=== PATIENT | male | born 1960 | race Caucasian/White ===

== ENCOUNTER 2017-02-22 04:25 | Emergency (ER) | payer SELFPAY ==
[2017-02-22 04:31] VITALS: BMI 19.5
[2017-02-22 04:32] VITALS: BP 116/74; PULSE 115; RESP 28; TEMP 36.7; O2SAT 92; BMI 19.5
--- NOTE | 2017-02-22 04:33 | XR_ITS ---
XR chest 2V HISTORY: Shortness of breath ITS.REASON: c/o sob ORDERING PHYSICIAN: Miguel Nettles MD PATIENT AGE: 56 years COMPARISON: None available FINDINGS: The cardiomediastinal silhouette and pulmonary vascularity are within normal limits. Hyperinflation with attenuation of the pulmonary vessels consistent with COPD. There is prominence of the interstitium/curly B lines and may be due to interstitial pneumonitis. Acute cardiac compensation is also considered. The heart size is normal and the pulmonary vessels however are not engorged. No effusions. No acute bony anomalies. IMPRESSION: 1. COPD/emphysema. 2. Diffuse prominence of the interstitium consistent with interstitial pneumonitis either acute or chronic versus acute cardiac decompensation with interstitial edema
[2017-02-22 05:00] VITALS: PULSE 103; PULSE 105
[2017-02-22 05:05] LABS: Basophils # 0.1 K/mm3 (0-0.2); Basophils % 0.8 % (0.1-2.0); Eosinophils # 0.1 K/mm3 (0.0-0.4); Eosinophils % 1.9 % (0.1-12.0); Hematocrit 43.9 % (42.0-52.0); Lymphocytes # 0.8 K/mm3 (0.7-4.5); Lymphocytes % 13.7 K/mm3 (10-50); Mean Corpuscular HGB Conc 34.2 g/dL (31.8-35.4); Mean Corpuscular Hemoglobin 31.5 pg (27.0-31.2); Mean Corpuscular Volume 92.2 fl (80-94); Mean Platelet Volume 6.9 fl (7.4-10.4); Monocytes # 0.4 K/mm3 (0.1-1.0); Monocytes % 6.5 % (1.7-9.3); Neutrophils # 4.7 K/mm3 (1.8-7.8); Neutrophils % 77.2 % (37.0-80.0); Platelet Count 309 K/mm3 (142-424); Red Blood Count 4.76 M/mm3 (4.60-6.20); Red Cell Distribution Width 12.1 % (11.5-17.5); White Blood Count 6.1 K/mm3 (4.8-10.8)
[2017-02-22 05:12] LABS: Lactic Acid 1.1 mmol/L (0.4-2.0)
[2017-02-22 05:13] LABS: Alanine Aminotransferase 15 U/L (12-78); Albumin Level 3.8 gm/dL (3.4-5.0); Albumin/Globulin Ratio 0.9 (1.1-1.8); Alkaline Phosphatase 71 U/L (46-116); Anion Gap 12.9 mEq/L (5-15); Aspartate Amino Transferase 18 U/L (15-37); Bilirubin,Total 0.5 mg/dL (0.2-1.0); Blood Urea Nitrogen 11 mg/dL (7-18); Calcium 8.8 mg/dL (8.5-10.1); Carbon Dioxide 26 mmol/L (21.0-32.0); Chloride 101 mmol/L (98-107); Creatinine Clearance Estimated 71 mL/min (0-300); Creatinine,Serum 0.94 mg/dL (0.70-1.30); Estimated Glomerular Filt Rate 83 ml/min (>60); GFR (African American) 101 ML/MIN (>60); Globulin 4.2 gm/dl (1.3-3.2); Glucose 103 mg/dL (74-106); Potassium 3.9 mmoL/L (3.5-5.1); Sodium 136 mmol/L (136-145)
--- NOTE | 2017-02-22 05:21 | HMH.EDSOB ---
ED Disposition Clinical Impression: Acute exacerbation of chronic obstructive airways disease, Bronchitis Disposition: Home, Self-Care Condition on Discharge: Good Instructions: DI for Chronic Obstructive Pulmonary Disease Additional Instructions: use meds and see pcp for follow up Prescriptions: Azithromycin [Zithromax 250mg tab] 250 mg PO DIRECTED #6 tab Benzonatate [Tessalon Perle 100mg Cap] 100 mg PO TID #30 cap predniSONE [Prednisone 20mg Tab] 20 mg PO DAILY #10 tab - Critical Care Critical Care Time: No Attestation: On 02/22/17, the high probability of a clinically significant, sudden or life threatening deterioration of the following system(s) required my full and direct attention, intervention and personal management. The time I documented below is in addition to time spent performing reported procedures but includes the following listed in this critical care notation. Medical Decision Making - Medical Records Medical records reviewed: Yes: I reviewed the patient's medical records. Vital Signs: 02/22/17 04:32 02/22/17 05:00 02/22/17 05:33 Temperature 98.1 F 99 F Temperature Source Oral Oral Pulse Rate 105 H Pulse Rate [Right Radial] 115 H 102 H Respiratory Rate 28 H 20 Blood Pressure [Right Arm] 116/74 113/71 Blood Pressure Mean [Right Arm] 88 85 Blood Pressure Source [Right Arm] Automatic Cuff Automatic Cuff Blood Pressure Position [Right Arm] Sitting Sitting 02 Sat by Pulse Oximetry 92 L 96 Oxygen Delivery Method Room Air Nasal Cannula Oxygen Flow Rate (LPM) 2 - Lab Data Lab results reviewed: Yes: I reviewed the patient's lab results. Lab Results 02/22/17 04:40: WBC 6.1, RBC 4.76, Hgb 15.0, Hct 43.9, MCV 92.2, MCH 31.5 H, MCHC 34.2, RDW 12.1, Plt Count 309, MPV 6.9 L, Neut % (Auto) 77.2, Lymph % (Auto) 13.7, [place] % (Auto) 6.5, Eos % (Auto) 1.9, Baso % (Auto) 0.8, Neut # (Auto) 4.7, Lymph # (Auto) 0.8, [place] # (Auto) 0.4, Eos # (Auto) 0.1, Baso # (Auto) 0.1 02/22/17 04:40: Sodium 136, Potassium 3.9, Chloride 101, Carbon Dioxide 26, Anion Gap 12.9, BUN 11, Creatinine 0.94, Estimated Creat Clear 71, Estimated GFR 83, Est GFR ( Amer) 101, Glucose 103, Calcium 8.8, Total Bilirubin 0.5, AST 18, ALT 15, Alkaline Phosphatase 71, Total Protein 8.0, Albumin 3.8, Globulin 4.2 H, Albumin/Globulin Ratio 0.9 L 02/22/17 04:40: Lactic Acid 1.1 02/22/17 04:40: Total Creatine Kinase 73, CK-MB (CK-2) < 0.5, CK-MB (CK-2) Rel Index 0.7, Troponin I < 0.02 02/22/17 04:50: Influenza Type A Ag Negative, Influenza Type B Ag Negative Result diagrams: 02/22/17 04:40 02/22/17 04:40 Orders (Tests/Meds): ED MEDICATIONS Generic Name Dose Route Start Last Admin Trade Name Freq PRN Reason Stop Dose Admin Albuterol Sulfate 2 puffs 02/22/17 06:20 Proventil-Hfa 90mcg/Puff Inhaler IH 03/24/17 06:19 Q4HP PRN Shortness Of Breath Discontinued Medications Generic Name Dose Route Start Last Admin Trade Name Freq PRN Reason Stop Dose Admin Methylprednisolone Sodium Succinate 125 mg 02/22/17 05:36 02/22/17 05:41 Solu-Medrol 125mg/2ml Vial IV 02/22/17 05:37 125 mg ONCE ONE Administration Miscellaneous 1 unit 02/22/17 06:20 Aerochamber/Optihaler MC 02/22/17 06:21 ONCE ONE ORDERS Category Date Time Status Blood Culture Stat Micro 02/22/17 04:40 Received - Radiology Data #1 Image(s): Chest Image Reviewed: Yes I reviewed the patient's radiology image Preliminary Findings: Abnormal (copd) - ECG Data Tracing #1 I reviewed this ECG and interpreted as documented below: Ischemic changes: non-specific ST-T wave changes - [place] Inquiry Pt receiving controlled substance: No Resp/SOB HPI - General Chief Complaint: Shortness of Breath/Dyspnea Stated Complaint: SOA Time Seen by Provider: 02/22/17 05:21 Mode of Arrival: Ambulatory Source of Information: Patient, Spouse, Medical Record Limitations: No Limitations
--- NOTE | 2017-02-22 05:24 | ED_ITS ---
ED Disposition Clinical Impression: Acute exacerbation of chronic obstructive airways disease, Bronchitis Disposition: Home, Self-Care Condition on Discharge: Good Instructions: DI for Chronic Obstructive Pulmonary Disease Additional Instructions: use meds and see pcp for follow up Prescriptions: Azithromycin [Zithromax 250mg tab] 250 mg PO DIRECTED #6 tab Benzonatate [Tessalon Perle 100mg Cap] 100 mg PO TID #30 cap predniSONE [Prednisone 20mg Tab] 20 mg PO DAILY #10 tab - Critical Care Critical Care Time: No Attestation: On 02/22/17, the high probability of a clinically significant, sudden or life threatening deterioration of the following system(s) required my full and direct attention, intervention and personal management. The time I documented below is in addition to time spent performing reported procedures but includes the following listed in this critical care notation. Medical Decision Making - Medical Records Medical records reviewed: Yes: I reviewed the patient's medical records. Vital Signs: 02/22/17 04:32 02/22/17 05:00 02/22/17 05:33 Temperature 98.1 F 99 F Temperature Source Oral Oral Pulse Rate 105 H Pulse Rate [Right Radial] 115 H 102 H Respiratory Rate 28 H 20 Blood Pressure [Right Arm] 116/74 113/71 Blood Pressure Mean [Right Arm] 88 85 Blood Pressure Source [Right Arm] Automatic Cuff Automatic Cuff Blood Pressure Position [Right Arm] Sitting Sitting 02 Sat by Pulse Oximetry 92 L 96 Oxygen Delivery Method Room Air Nasal Cannula Oxygen Flow Rate (LPM) 2 - Lab Data Lab results reviewed: Yes: I reviewed the patient's lab results. Lab Results 02/22/17 04:40: WBC 6.1, RBC 4.76, Hgb 15.0, Hct 43.9, MCV 92.2, MCH 31.5 H, MCHC 34.2, RDW 12.1, Plt Count 309, MPV 6.9 L, Neut % (Auto) 77.2, Lymph % (Auto ) 13.7, [place] % (Auto) 6.5, Eos % (Auto) 1.9, Baso % (Auto) 0.8, Neut # (Auto) 4.7, Lymph # (Auto) 0.8, [place] # (Auto) 0.4, Eos # (Auto) 0.1, Baso # (Auto) 0.1 02/22/17 04:40: Sodium 136, Potassium 3.9, Chloride 101, Carbon Dioxide 26, Anion Gap 12.9, BUN 11, Creatinine 0.94, Estimated Creat Clear 71, Estimated GFR 83, Est GFR ( Amer) 101, Glucose 103, Calcium 8.8, Total Bilirubin 0.5, AST 18, ALT 15, Alkaline Phosphatase 71, Total Protein 8.0, Albumin 3.8, Globulin 4.2 H, Albumin/Globulin Ratio 0.9 L 02/22/17 04:40: Lactic Acid 1.1 02/22/17 04:40: Total Creatine Kinase 73, CK-MB (CK-2) < 0.5, CK-MB (CK-2) Rel Index 0.7, Troponin I < 0.02 02/22/17 04:50: Influenza Type A Ag Negative, Influenza Type B Ag Negative Result diagrams: 02/22/17 04:40 02/22/17 04:40 Orders (Tests/Meds): ED MEDICATIONS Generic Name Dose Route Start Last Admin Trade Name Freantonino PRN Reason Stop Dose Admin Albuterol Sulfate 2 puffs 02/22/17 06:20 Proventil-Hfa 90mcg/Puff Inhaler IH 03/24/17 06:19 Q4HP PRN Shortness Of Breath Discontinued Medications Generic Name Dose Route Start Last Admin Trade Name Freq PRN Reason Stop Dose Admin Methylprednisolone Sodium Succinate 125 mg 02/22/17 05:36 02/22/17 05:41 Solu-Medrol 125mg/2ml Vial IV 02/22/17 05:37 125 mg ONCE ONE Administration Miscellaneous 1 unit 02/22/17 06:20 Aerochamber/Optihaler MC 02/22/17 06:21 ONCE ONE ORDERS Category Date Time Status Blo
[2017-02-22 05:33] VITALS: BP 113/71; PULSE 102; RESP 20; TEMP 37.2; O2SAT 96
[2017-02-22 05:50] LABS: Creatine Kinase 73 U/L (39-308); Troponin I < 0.02 ng/ml (0.00-0.06)
[2017-02-22 05:51] LABS: CKMB Relative Index 0.7 U/L (0-4.0); Creatine Kinase MB < 0.5 mg/ml (0.0-3.6)
[2017-02-22 06:48] VITALS: BP 98/56; PULSE 105; RESP 24; TEMP 37.2; O2SAT 94
== END 2017-02-22 06:50 | disposition home or self-care (01) ==
PROVIDERS: Emergency Provider Emergency Medicine
DX: J44.1 Chronic obstructive pulmonary disease with (acute) exacerbation (principal); F17.210 Nicotine dependence, cigarettes, uncomplicated; F12.10 Cannabis abuse, uncomplicated; Z79.82 Long term (current) use of aspirin
CPT/HCPCS: 71046; 80053; 82550; 82553; 83605; 84484; 85025; 87040; 87275; 87276; 93005; 93041; 96374; 99285

== ENCOUNTER 2021-08-03 05:30 | Observation (INO) | payer OTHER, SELFPAY ==
[2021-08-03] VITALS (13 sets, daily range): BP systolic 121–143; BP diastolic 67–87; PULSE 84–108; RESP 15–33; TEMP 36.4–37.7; O2SAT 81–98; BMI 18.1; BMI 17.2
--- NOTE | 2021-08-03 05:45 | XR_ITS ---
PROCEDURE INFORMATION: Exam: XR Chest Exam date and time: 08/03/2021 6:04 AM Age: 61 years old Clinical indication: Shortness of breath; Additional info: SOA, room air sat 79% TECHNIQUE: Imaging protocol: Radiologic exam of the chest. Views: 1 view. COMPARISON: CR CXR2V XR chest 2V 02/22/2017 4:50 AM FINDINGS: Lungs: The lungs are hyperinflated similar to prior study likely related to COPD. Pulmonary reticular markings are similar bilaterally. Pleural spaces: Unremarkable. No pleural effusion. No pneumothorax. Heart/Mediastinum: Unremarkable. No cardiomegaly. Bones/joints: Unremarkable. IMPRESSION: Chronic changes of COPD.
--- NOTE | 2021-08-03 05:46 | ECG_ITS ---
APPROVED REPORT Exam: Resting ECG HR:107 bpm ECG Measurements Heart Rate 107 AXES NC 135 P 79 QRSd 120 QRS 89 QT 330 T 68 QTc 393 Conclusion SINUS TACHYCARDIA INDETERMINATE AXIS RIGHT BUNDLE BRANCH BLOCK [120+ ms QRS DURATION, UPRIGHT V1, 40+ ms S IN I/aVL/V4/V5/V6] ABNORMAL ECG UNCONFIRMED REPORT Electronically signed by : Zaheer Lopez MD 08/04/2021 08:26:59
--- NOTE | 2021-08-03 05:49 | PC.NURSE ---
PT SP02 81% ON ROOM AIR UPON ARRIVAL. PT PLACED ON 02 2L NC SP02 IMPROVED TO 93% WITH PURSE LIPPED BREATHING. FAMILY AT BEDSIDE.
[2021-08-03 05:53] LABS: Basophils # 0.1 K/mm3 (0-0.2); Basophils % 1.5 % (0.1-2.0); Eosinophils # 0.1 K/mm3 (0.0-0.4); Eosinophils % 1.1 % (0.1-12.0); Hematocrit 39.5 % (42.0-52.0); Hemoglobin 13.3 g/dL (14.1-18.0); Lymphocytes # 1.1 K/mm3 (0.7-4.5); Lymphocytes % 17.9 % (10-50); Mean Corpuscular HGB Conc 33.7 g/dL (31.8-35.4); Mean Corpuscular Hemoglobin 32.9 pg (27.0-31.2); Mean Corpuscular Volume 97.6 fl (80-94); Mean Platelet Volume 8.2 fl (7.4-10.4); Monocytes # 0.5 K/mm3 (0.1-1.0); Monocytes % 8.8 % (1.7-9.3); Neutrophils # 4.3 K/mm3 (1.8-7.8); Neutrophils % 70.7 % (37.0-80.0); Platelet Count 296 K/mm3 (142-424); Red Blood Count 4.05 M/mm3 (4.60-6.20); Red Cell Distribution Width 13.5 % (11.5-17.5); White Blood Count 6.1 K/mm3 (4.8-10.8)
[2021-08-03 05:56] LABS: Chloride 101 mmol/L (98-107); Potassium 3.1 mmoL/L (3.5-5.1); Sodium 137 mmol/L (136-145)
[2021-08-03 05:59] LABS: Alanine Aminotransferase 22 U/L (12-78); Albumin Level 4.1 g/dl (3.5-5.0); Albumin/Globulin Ratio 1.2 (1.1-1.8); Alkaline Phosphatase 59 U/L (38-126); Anion Gap 12.1 mEq/L (5-15); Aspartate Amino Transferase 32 U/L (17-59); Bilirubin,Total 0.7 mg/dl (0.2-1.3); Blood Urea Nitrogen 15 mg/dl (9-20); Carbon Dioxide 27 mmol/L (22.0-30.0); Creatinine Clearance Estimated 84 mL/min (50-200); Estimated Glomerular Filt Rate 115 ml/min (>60); GFR (African American) 139 ML/MIN (>60); Globulin 3.3 g/dL (1.3-3.2); Lactic Acid 1.3 mmol/L (0.7-2.1); Total Protein,Serum 7.4 g/dl (6.3-8.2)
[2021-08-03 06:00] LABS: Calcium 9.1 mg/dl (8.4-10.2); Glucose 165 mg/dl (74-100)
[2021-08-03 06:02] LABS: Magnesium 1.5 mg/dl (1.6-2.3)
[2021-08-03 06:04] LABS: C-Reactive Protein 141.9 mg/L (0-4)
[2021-08-03 06:06] LABS: ABG Base Excess -1.5 mmol/L (-2.4-2.3); ABG HCO3 22.5 mmhg (22.0-26.0); ABG Oxygen Saturation 95 % (90-100); ABG PCO2 33.2 mmhg (35.0-45.0); ABG PH 7.45 mmol/L (7.35-7.45); ABG PO2 71.4 mmhg (80-100); ABG TCO2 23.5 mmhg (23-27)
[2021-08-03 06:09] LABS: Allen's Test Acceptable; Oxygen 2 lpm %; Source Left Radial
[2021-08-03 06:12] LABS: NT Pro Brain Natriuretic Pep. 95.7 pg/mL (0-125); Troponin I < 0.01 ng/ml (0.00-0.034)
[2021-08-03 06:18] LABS: Erythrocyte Sedimentation Rate 61 mm/hr (0-20); Procalcitonin 0.107 ng/mL (0.0-2.0)
--- NOTE | 2021-08-03 06:30 | HMH.EDSOB ---
ED Disposition Clinical Impression: Acute exacerbation of chronic obstructive airways disease, RBBB (right bundle branch block with left anterior fascicular block), Tobacco use, SIRS (systemic inflammatory response syndrome) Disposition: Admitted As Inpatient Condition on Discharge: Serious Referrals: Brett Lopes MD [Primary Care Provider] - - Critical Care Critical Care Time: No Attestation: On 08/03/21, the high probability of a clinically significant, sudden or life threatening deterioration of the following system(s) required my full and direct attention, intervention and personal management. The time I documented below is in addition to time spent performing reported procedures but includes the following listed in this critical care notation. Medical Decision Making - Medical Records Medical records reviewed: Yes: I reviewed the patient's medical records. - [place] Inquiry Pt receiving controlled substance: No Vital Signs: 08/03/21 05:31 08/03/21 06:20 Temperature 99.8 F H Temperature Source Oral Pulse Rate 108 H Pulse Rate [Right Radial] 108 H Respiratory Rate 33 H Blood Pressure [Right Arm] 128/76 Blood Pressure Mean [Right Arm] 93 Blood Pressure Source [Right Arm] Automatic Cuff Blood Pressure Position [Right Arm] Sitting 02 Sat by Pulse Oximetry 81 L Oxygen Delivery Method Room Air - Lab Data Lab results reviewed: Yes: I reviewed the patient's lab results. Lab Results 08/03/21 05:40: ESR 61 H 08/03/21 05:40: C-Reactive Protein 141.9 H, Procalcitonin 0.107 08/03/21 05:40: WBC 6.1, RBC 4.05 L, Hgb 13.3 L, Hct 39.5 L, MCV 97.6 H, MCH 32.9 H, MCHC 33.7, RDW 13.5, Plt Count 296, MPV 8.2, Neut % (Auto) 70.7, Lymph % (Auto) 17.9, [place] % (Auto) 8.8, Eos % (Auto) 1.1, Baso % (Auto) 1.5, Neut # (Auto) 4.3, Lymph # (Auto) 1.1, [place] # (Auto) 0.5, Eos # (Auto) 0.1, Baso # (Auto) 0.1 08/03/21 05:40: Sodium 137, Potassium 3.1 L, Chloride 101, Carbon Dioxide 27, Anion Gap 12.1, BUN 15, Creatinine 0.70, Estimated Creat Clear 84, Estimated GFR 115, Est GFR ( Amer) 139, Glucose 165 H, Calcium 9.1, Total Bilirubin 0.7, AST 32, ALT 22, Alkaline Phosphatase 59, Troponin I < 0.01, Total Protein 7.4, Albumin 4.1, Globulin 3.3 H, Albumin/Globulin Ratio 1.2 08/03/21 05:40: Lactate 1.3 08/03/21 05:40: Magnesium 1.5 L, NT-Pro-B Natriuret Pep 95.7 08/03/21 05:45: Specimen Source Left radial, O2 % 2 lpm, ABG pH 7.45, ABG pCO2 33.2 L, ABG pO2 71.4 L, ABG HCO3 22.5, ABG Total CO2 23.5, ABG O2 Saturation 95, ABG Base Excess -1.5, Robi Test Acceptable Result diagrams: 08/03/21 05:40 08/03/21 05:40 Orders (Tests/Meds): ED MEDICATIONS Generic Name Dose Route Start Last Admin Trade Name Freq PRN Reason Stop Dose Admin Sodium Chloride 1,000 mls @ 999 mls/hr 08/03/21 06:00 08/03/21 05:53 Sod Chlor 0.9% 1000ml Bag IV 08/03/21 07:00 999 mls/hr .Q1H1M RASHAWN Administration Sodium Chloride 3 ml 08/03/21 05:45 Sodium Chloride 3% 15ml [facility] 09/02/21 05:44 ONCE PRN INDUCE SPUTUM COLLECTION Sodium Chloride 10 ml 08/03/21 05:50 Sodium Chloride 0.9% 10ml Flush Syringe IV 09/02/21 05:49 NEEDED PRN Maintain IV Site Discontinued Medications Generic Name Dose Route Start Last Admin Trade Name Freq PRN Reason Stop Dose Admin Albuterol/Ipratropium 3 ml 08/03/21 06:03 08/03/21 06:12 Ipratropium/Albuterol 3 Ml [facility] 08/03/21 06:04 3 ml ONCE ONE Administration Methylprednisolone Sodium Succinate 125 mg 08/03/21 05:47 08/03/21 05:53 Methylprednisolone Sod Succ 125mg Vial IV 08/03/21 05:48 125 mg ONCE ONE Administration ORDERS Category Date Time Status XR chest portable Stat Exams 08/03/21 05:45 Taken Rapid PCR Covid and Flu A/B Stat Lab 08/03/21 05:44 Ordered Troponin I Q3H Lab 08/03/21 09:00 Ordered Troponin I Q3H Lab 08/03/21 12:00 Ordered Blood Culture Stat Micro 08/03/21 05:40 Received Sputum Culture & Gram Stain Routine Micro
--- NOTE | 2021-08-03 06:45 | PC.NURSE ---
Dr. Rosemary kim for ED
--- NOTE | 2021-08-03 06:48 | PC.NURSE ---
Dr. Nettles on phone with Dr. Riley
[2021-08-03 06:56] LABS: Coronavirus 19, PCR Not Detected (NotDetected); Influenza A, PCR Not Detected (NotDetected); Influenza B, PCR Not Detected (NotDetected)
--- NOTE | 2021-08-03 07:47 | PC.NURSE ---
Called dietary and requested a breakfast tray
--- NOTE | 2021-08-03 08:12 | CA_ITS ---
APPROVED REPORT EXAM: Comprehensive 2D, Doppler, and color-flow Echocardiogram Customer Training Specialist: Diana Fajardo RVT Ht: 5 ft 7 in Wt: 116lbs BSA: 1.60 BP: 128/76 mmHg Indications: copd,rbbb,murmur,soa,smoker 2D Dimensions LVOT 2.26 cm (M/F) 1.5-2.5 LA Volume 21.30 mL LA Volume Index 13.31 mL/m2 (M/F) 16-34 M-Mode Dimensions RVDd 4.28 cm (0.9-2.6) LA Diam 3.09 cm (1.9-4.0) LVDd 4.45 cm (3.5-5.7) Ao Diam 3.81 cm (2.0-3.7) LVDs 2.74 cm (3.5-5.7) IVSd 1.04 cm (0.6-1.1) PWd 0.74 cm (0.6-1.1) EF (Teich) 68.90% FS 38.40% EDV (Teich) 90.10 mL TAPSE 1.90 (<1.7) ESV (Teich) 28.00 mL LV Diastology E Decel Time 103.00 (160-240 msec) E/A Ratio 0.9 MED E' 7.90 (< 7 cm/sec) E'/MED E' Ratio 8.73 (>14) LAT E' 12.70 (<10 cm/sec) E/LAT E' Ratio 5.43 (>14) Aortic Valve AO Peak GR. 7.00 mmHg Mitral Valve MV E Max Shiva. 69.00 (40-130 cm/s) MV A Velocity 75.00 (40-130 cm/s) E/A Ratio 0.92 MV Decel. Time 103.00 (160-240 ms) MV PHT 30.00 ms Pulmonary Valve PV Peak Velocity 104.00 (50-150 cm/s) Tricuspid Valve TR P. Velocity 347.00 cm/s RAP Estimate 10.00 mmHg RVSP 58.10 mmHg Left Ventricle On the left, left ventricle is normal size, mild concentric left ventricular hypertrophy, estimated ejection fraction 55% with no regional wall motion abnormality, grade 1 diastolic dysfunction seen without tissue Doppler evidence of raise left atrial pressure. Right Ventricle Right atrium and right ventricle moderately enlarged with normal contractility. Aortic Valve Aortic valve is minimally thickened and fibrosed there is no aortic stenosis or aortic insufficiency. Mitral Valve Mitral valve grossly normal, there is trace mitral regurgitation. Tricuspid Valve Tricuspid valve grossly normal, there is mild tricuspid regurgitation noted, calculated right ventricular systolic pressure is 58 mmHg. Pulmonic Valve Pulmonic valve is poorly visualized. Great Vessels Aortic root is normal size. Inferior vena cava normal size with normal inspiratory collapse. Pericardium No significant pericardial effusion noted. Conclusion 1. Mild biatrial lodgment, normal left ventricular size mild concentric left ventricular hypertrophy, estimated ejection fraction 55% with no regional wall motion abnormality, grade 1 diastolic dysfunction seen without tissue Doppler evidence of raise left atrial pressure. 2. Moderately enlarged right ventricle with normal contractility. 3. Trace mitral and mild tricuspid regurgitation, calculated right ventricular systolic pressure 58 mmHg. 4. No significant pericardial effusion. 5. Inferior vena cava is normal size with normal inspiratory collapse. Electronically signed by : Refugio Patel MD 08/03/2021 19:10:55
--- NOTE | 2021-08-03 08:51 | PC.NURSE ---
called report to shoshana fontaine rn
[2021-08-03 09:39] LABS: Troponin I < 0.01 ng/ml (0.00-0.034)
--- NOTE | 2021-08-03 09:52 | HMH.PULMCON ---
*Admission Date: 08/03/21 *Reason for consult:: Acute hypoxic respiratory failure, COPD exacerbation *History of present illness: Mr. Montano is a 61-year-old male current smoker greater than [id number] smoking to get a diagnosis COPD presented hospital with progressive worsening respiratory distress cough with productive phlegm and pulmonary was called for further management. [facility] History I have reviewed the patient's past medical history: Yes Medical History: Denies:: Cancer, Diabetes Mellitus Type 1, Diabetes Mellitus Type 2, MRSA *Have you ever received a pneumonia vaccine?: No *Have you received a flu vaccine this season?: Yes Other Medical History: Reports: Other Other Surgeries: Yes: Other Amputation: No Fractures: No - *Social History Last grade of school completed: Some college Smoking Status: Current every day smoker Tobacco Type: cigarettes # Packs/Day (cigarettes): 1 Alcohol Intake: never Alcohol Intake Frequency:: other Substance Use Type: marijuana Last Used Substance: unknown *Occupational Status:: employed *Travel in the last 8 weeks: None Family Hx:: Coronary Artery Disease, Other ROS - Cons Reports fatigue, Reports weakness, Reports weight loss - Eyes Reports blurry vision - ENT Reports nasal congestion - Card Reports shortness of breath, Reports shortness of breath with activity - Resp Respiratory: Reports shortness of breath, Reports chest congestion, Reports excessive phlegm production, Denies coughing up blood, Denies pain on inspiration, Reports cough with sputum production, Denies pain with breathing - GI Gastrointestingal: Denies: abdominal pain - [place] Musculoskeletal: Reports muscle weakness - Psych Denies thoughts of hurting/killing others, Denies thoughts of hurting/killing yourself Meds Home Medications Medication Instructions Recorded Confirmed Type Aspirin [Aspirin 325mg Tab] 325 mg PO DAILY 02/22/17 08/03/21 History Albuterol Sulfate [Albuterol 1 puff IH Q4HP PRN 08/03/21 08/03/21 History Sulfate Hfa] Cyproheptadine HCl [Periactin 4mg 4 mg PO BID 08/03/21 08/03/21 History Tablet] Ipratropium/Albuterol Sulfate 1 puff IH Q6HP PRN 08/03/21 08/03/21 History [Combivent Respimat Inh] Azithromycin 250 mg PO DAILY 4 Days #4 tab 08/04/21 Rx Fluticasone/Umeclidin/Vilanter 1 puffs IH DAILY 30 Days #1 each 08/04/21 Rx [Trelegy Ellipta 100/62.5/25mcg Inhaler] Ipratropium/Albuterol Sulfate 3 ml IH Q6HP PRN 30 Days #120 each 08/04/21 Rx [Duoneb 3mL neb] Nicotine [Nicoderm 21mg/24hr 21 mg TD DAILYP PRN 30 Days #30 08/04/21 Rx patch] patch Nystatin [Nystatin Susp 500,000 500,000 unit PO QID 10 Days #200 ml 08/04/21 Rx Units/5mL Udc] predniSONE [Deltasone 20mg 40 mg PO DAILY 4 Days #8 tab 08/04/21 Rx tablet] Allergies Allergy/AdvReac Type Severity Reaction Status Date / Time No Known Allergies Allergy Verified 02/22/17 04:32 Exam - Constitutional Constitutional:: Absent: no acute distress, comfortable - HENMT Exam HENMT: Present: normocephalic - Eye Exam Eyes:: Present: normal appearance both eyes and related structures - Neck Exam Neck:: Present: normal visual inspection - Respiratory Exam Respiratory:: Present: able to speak in complete sentences, respiratory distress, wheezing - Cardiovascular Exam Cardiac:: Present: S1, S2 - GI Exam GI:: Present: soft - Skin Exam Skin: Present: warm, no rash - Neurological Exam Neurological: Present: alert, awake, normal cognition - Extremities Exam Extremities: Present: no cyanosis, no clubbing, no edema Internal Medicine - CN: Reslt - Labs CBC & Chem 7: 08/04/21 06:20 08/04/21 06:20 Labs: Short CBC 08/03/21 Range/Units 05:40 WBC 6.1 (4.8-10.8) K/mm3 Hgb 13.3 L (14.1-18.0) g/dL Hct 39.5 L (42.0-52.0) % Plt Count 296 (142-424) K/mm3 BMP 08/03/21 05:40 Sodium 137 Potassium 3.1 L Chloride 101 Carbon
--- NOTE | 2021-08-03 11:05 | HMH.PHAVTE ---
[facility] Pharmacy VTE Monitoring - Patient Demographics Admission date: 08/03/21 Report Date: 08/03/21 Time: 11:05 Allergies/Adverse Reactions: Patient Allergies No Known Allergies Allergy (Verified 02/22/17 04:32) Height: 1.7 m Weight: 50.037 kg Patient Problems: Current Active Problems Acute exacerbation of chronic obstructive airways disease (Acute) RBBB (right bundle branch block with left anterior fascicular block) (Acute) Tobacco use (Acute) SIRS (systemic inflammatory response syndrome) (Acute) - VTE Risk Labs: VTE Related Lab Results Hgb 13.3 g/dL (14.1-18.0) L 08/03/21 05:40 Hct 39.5 % (42.0-52.0) L 08/03/21 05:40 Plt Count 296 K/mm3 (142-424) 08/03/21 05:40 BUN 15 mg/dl (9-20) 08/03/21 05:40 Creatinine 0.70 mg/dl (0.66-1.25) 08/03/21 05:40 Estimated Creat Clear 84 mL/min (50-200) 08/03/21 05:40 Was VTE Risk Assessment Performed: Yes VTE Score: 3 VTE Risk Level: Low Risk - Prophylaxis VTE Prophylaxis Ordered?: Yes Types of VTE Prophylaxis: TEDS Knee High Location of Applied Device: Bilateral Lower Extremeties
--- NOTE | 2021-08-03 11:05 | HMH.PHAINT ---
MEDICATION RECONCILIATION COMPLETED ON PATIENT USING EXTERNAL FILL HISTORY FROM PHARMACY. -ERIKA BENTON, SHAWD
[2021-08-03 12:36] LABS: Troponin I < 0.01 ng/ml (0.00-0.034)
--- NOTE | 2021-08-03 14:27 | HMH.HP ---
*Admission Date: 08/03/21 *Chief complaint: short of breath *History of present illness: 61-year-old male with significant history of COPD for over 12 years. Not on oxygen at home. Only uses albuterol and Combivent. Presented to the ER with worsening shortness of breath over the past several days. Denies fever. Cough somewhat productive. No nausea or vomiting. Feeling tight in his chest. On arrival to the ER, found to have pursed lip breathing hypoxia on room air. Chest imaging showing hyperinflation. Admitted for COPD exacerbation versus pneumonia. Initiated on oxygen, sats in the low 90s on 2-3 L. Evaluation after arriving to the floor, he has had a breathing treatment and is breathing marginally better. Remains afebrile. [facility] History I have reviewed the patient's past medical history: Yes Medical History: Reports:: Peripheral Vascular Disease Denies:: Cancer, Diabetes Mellitus Type 1, Diabetes Mellitus Type 2, MRSA *Have you ever received a pneumonia vaccine?: No *Have you received a flu vaccine this season?: No Other Medical History: Reports: Other Other Surgeries: Yes: Other Amputation: (TOP 1/2 OF LT INDEX FINGER) Fractures: No - *Social History Last grade of school completed: Some college Smoking Status: Current every day smoker Tobacco Type: cigarettes # Packs/Day (cigarettes): 1 Alcohol Intake: former Alcohol Intake Frequency:: other Substance Use Type: crack/cocaine Last Used Substance: unknown *Occupational Status:: disabled Housing: house *Travel in the last 8 weeks: None Family Hx:: Coronary Artery Disease, Other Review of Systems - Review of Systems Review of systems:: pertinent systems reviewed and negative unless documented below (14 point review of systems performed, pertinent positives and negatives as per HPI) - *Neurologic Reports weakness, Denies dizziness, Denies localized weakness Meds Home Medications Medication Instructions Recorded Confirmed Type Aspirin [Aspirin 325mg Tab] 325 mg PO DAILY 02/22/17 08/03/21 History Albuterol Sulfate [Albuterol 1 puff IH Q4HP PRN 08/03/21 08/03/21 History Sulfate Hfa] Cyproheptadine HCl [Periactin 4mg 4 mg PO BID 08/03/21 08/03/21 History Tablet] Ipratropium/Albuterol Sulfate 1 puff IH Q6HP PRN 08/03/21 08/03/21 History [Combivent Respimat Inh] Allergies Allergy/AdvReac Type Severity Reaction Status Date / Time No Known Allergies Allergy Verified 02/22/17 04:32 Exam Vital signs and Labs for Last 24 Hours: Temp Pulse Resp BP Pulse Ox 97.5 F L 96 H 18 127/81 93 L 08/03/21 09:33 08/03/21 13:28 08/03/21 09:33 08/03/21 09:33 08/03/21 13:28 Laboratory Results - last 24 hr 08/03/21 05:40: ESR 61 H 08/03/21 05:40: C-Reactive Protein 141.9 H, Procalcitonin 0.107 08/03/21 05:40: WBC 6.1, RBC 4.05 L, Hgb 13.3 L, Hct 39.5 L, MCV 97.6 H, MCH 32.9 H, MCHC 33.7, RDW 13.5, Plt Count 296, MPV 8.2, Neut % (Auto) 70.7, Lymph % (Auto) 17.9, Cobb % (Auto) 8.8, Eos % (Auto) 1.1, Baso % (Auto) 1.5, Neut # (Auto) 4.3, Lymph # (Auto) 1.1, Cobb # (Auto) 0.5, Eos # (Auto) 0.1, Baso # (Auto) 0.1 08/03/21 05:40: Sodium 137, Potassium 3.1 L, Chloride 101, Carbon Dioxide 27, Anion Gap 12.1, BUN 15, Creatinine 0.70, Estimated Creat Clear 84, Estimated GFR 115, Est GFR ( Amer) 139, Glucose 165 H, Calcium 9.1, Total Bilirubin 0.7, AST 32, ALT 22, Alkaline Phosphatase 59, Troponin I < 0.01, Total Protein 7.4, Albumin 4.1, Globulin 3.3 H, Albumin/Globulin Ratio 1.2 08/03/21 05:40: Lactate 1.3 08/03/21 05:40: Magnesium 1.5 L, NT-Pro-B Natriuret Pep 95.7 08/03/21 05:45: Specimen Source Left radial, O2 % 2 lpm, ABG pH 7.45, ABG pCO2 33.2 L, ABG pO2 71.4 L, ABG HCO3 22.5, ABG Total CO2 23.5, ABG O2 Saturation 95, ABG Base Excess -1.5, Robi Test Acceptable 08/03/21 06:49: SARS-CoV-2 (PCR) Not detected, Influenza A Untype (PCR) Not detected, Influenza Type B (PCR) Not detected 08/03/21 09:05: Troponin I < 0.01 08/03/21 12:00: Troponin I < 0
--- NOTE | 2021-08-03 15:08 | HMH.CNCARD ---
History of Present Illness Consult date: 08/03/21 Requesting physician: Arslan Riley Consult reason: shortness of breath Chief complaint: SOA History of present illness: This is a 61-year-old white gentleman who presented to the emergency department complaints of shortness of breath. He states that he has been short of breath for approximately 10 years but it significantly worsened over the last several days. He states that his shortness of breath is associated with a productive cough. He is coughing up stephenson/brown sputum. He states that sometimes when he is coughing a lot he feels some tightness in his chest but no exertional chest pain or tightness. He is using accessory muscles to breathe during my examination. He denies any cardiac history. He denies any fever, chills, nausea, vomiting, diarrhea, PND or orthopnea. The patient has been admitted to the hospital for COPD exacerbation. Cardiology was consulted due to a new onset right bundle branch block on EKG. of note he does report using marijuana at times. He denies any other illicit or alcohol drug use. He does smoke 1 pack/day and has smoked for the last 48 years. [facility] History I have reviewed the patient's past medical history: Yes Medical History: Reports:: Peripheral Vascular Disease Denies:: Cancer, Diabetes Mellitus Type 1, Diabetes Mellitus Type 2, MRSA *Have you ever received a pneumonia vaccine?: No *Have you received a flu vaccine this season?: No Other Medical History: Reports: Other Other Surgeries: Yes: Other Amputation: (TOP 1/2 OF LT INDEX FINGER) Fractures: No - *Social History Last grade of school completed: Some college Smoking Status: Current every day smoker Tobacco Type: cigarettes # Packs/Day (cigarettes): 1 Alcohol Intake: former Alcohol Intake Frequency:: other Substance Use Type: marijuana, crack/cocaine Last Used Substance: unknown *Occupational Status:: disabled Housing: house *Travel in the last 8 weeks: None Family Hx:: Other Comment: Mother with atrial fibrillation Meds Home Medications Medication Instructions Recorded Confirmed Type Aspirin [Aspirin 325mg Tab] 325 mg PO DAILY 02/22/17 08/03/21 History Albuterol Sulfate [Albuterol 1 puff IH Q4HP PRN 08/03/21 08/03/21 History Sulfate Hfa] Cyproheptadine HCl [Periactin 4mg 4 mg PO BID 08/03/21 08/03/21 History Tablet] Ipratropium/Albuterol Sulfate 1 puff IH Q6HP PRN 08/03/21 08/03/21 History [Combivent Respimat Inh] Allergies Allergy/AdvReac Type Severity Reaction Status Date / Time No Known Allergies Allergy Verified 02/22/17 04:32 Exam Vital signs and Labs for Last 24 Hours: Temp Pulse Resp BP Pulse Ox 97.5 F L 96 H 18 127/81 93 L 08/03/21 09:33 08/03/21 13:28 08/03/21 09:33 08/03/21 09:33 08/03/21 13:28 Laboratory Results - last 24 hr 08/03/21 05:40: ESR 61 H 08/03/21 05:40: C-Reactive Protein 141.9 H, Procalcitonin 0.107 08/03/21 05:40: WBC 6.1, RBC 4.05 L, Hgb 13.3 L, Hct 39.5 L, MCV 97.6 H, MCH 32.9 H, MCHC 33.7, RDW 13.5, Plt Count 296, MPV 8.2, Neut % (Auto) 70.7, Lymph % (Auto) 17.9, [place]ard % (Auto) 8.8, Eos % (Auto) 1.1, Baso % (Auto) 1.5, Neut # (Auto) 4.3, Lymph # (Auto) 1.1, [place]ard # (Auto) 0.5, Eos # (Auto) 0.1, Baso # (Auto) 0.1 08/03/21 05:40: Sodium 137, Potassium 3.1 L, Chloride 101, Carbon Dioxide 27, Anion Gap 12.1, BUN 15, Creatinine 0.70, Estimated Creat Clear 84, Estimated GFR 115, Est GFR ( Amer) 139, Glucose 165 H, Calcium 9.1, Total Bilirubin 0.7, AST 32, ALT 22, Alkaline Phosphatase 59, Troponin I < 0.01, Total Protein 7.4, Albumin 4.1, Globulin 3.3 H, Albumin/Globulin Ratio 1.2 08/03/21 05:40: Lactate 1.3 08/03/21 05:40: Magnesium 1.5 L, NT-Pro-B Natriuret Pep 95.7 08/03/21 05:45: Specimen Source Left radial, O2 % 2 lpm, ABG pH 7.45, ABG pCO2 33.2 L, ABG pO2 71.4 L, ABG HCO3 22.5, ABG Total CO2 23.5, ABG O2 Saturation 95, ABG Base Excess -1.5, Robi Test Acceptable 08/03/21 06:49: SARS-CoV-2 (PCR) Not detected, Infl
--- NOTE | 2021-08-03 17:02 | PC.NURSE ---
Pt had uneventful day on my shift. There is no change from last assessment. Will continue to monitor. Pt brought an inhaler up from the ER, and was using it as needed. I took it earlier today and locked it in the med fixed income trading vice president his room. He also has been complaining of a sore throat.
--- NOTE | 2021-08-04 03:58 | PC.NURSE ---
Patient is alert and oriented. He has rested well this shift, with c/o his throat being sore. Continues on 2L NC without problems.
[2021-08-04 05:00] VITALS: BMI 18.8
[2021-08-04 06:37] VITALS: PULSE 77; PULSE 81; O2SAT 91
--- NOTE | 2021-08-04 07:05 | HMH.DCSUM ---
General - General Admission date:: 08/03/21 Discharge date: 08/04/21 HPI HPI: 61-year-old male with significant history of COPD for over 12 years. Not on oxygen at home. Only uses albuterol and Combivent. Presented to the ER with worsening shortness of breath over the past several days. Denies fever. Cough somewhat productive. No nausea or vomiting. Feeling tight in his chest. On arrival to the ER, found to have pursed lip breathing hypoxia on room air. Chest imaging showing hyperinflation. Admitted for COPD exacerbation versus pneumonia. Initiated on oxygen, sats in the low 90s on 2-3 L. Evaluation after arriving to the floor, he has had a breathing treatment and is breathing marginally better. Remains afebrile. Hospital Course Hospital Course: 61-year-old male with long reported history of COPD. Not on oxygen at home. Presented with acute hypoxemic respiratory failure. Secondary to COPD exacerbation. Initiated on antibiotics and steroids. Pulmonology consulted. Appreciate their recommendations. Patient additionally complains of some chest discomfort, differential diagnosis includes CAD, ACS, shortness of breath and muscle pain anxiety. Given new right bundle branch block, consulted cardiology. Patient responded well to antibiotics and steroids. Continues to require oxygen however. Discharged home with oxygen, nebulizer, steroids to finish 5-day course, and antibiotics for 5-day course for COPD exacerbation. Will need follow-up with pulmonology after discharge. Cardiology recommended a stress test in the outpatient setting. Needs to be scheduled by primary care Stable for discharge home. Examined on day of discharge. Stay meets Observation criteria. Objective Vital signs: Temp Pulse Resp BP Pulse Ox 97.8 F 77 18 143/67 H 91 L 08/03/21 20:00 08/04/21 06:37 08/03/21 20:00 08/03/21 20:00 08/04/21 06:37 Narrative: - Constitutional mild distress, thin, chronically ill appearing - *Routine HEENT Exam Head: Present: normocephalic Eye: Present: EOMI, PERRL ENT: Present: mucous membranes moist - *Routine Neck Exam Present: supple. Absent: lymphadenopathy - *Routine Respiratory Exam Present: prolonged expiratory phase, wheezes, diminished air movement; however marginally improved over previous exam. - *Routine Cardiovascular Exam Present: tachycardia - *Routine Abdominal Exam Present: soft, normoactive bowel sounds. Absent: tenderness - *Routine Extremities Exam No cyanosis, edema; Significant Clubbing of fingers and toes - *Routine Skin Exam Present: warm. Absent: rash - *Routine Neurological Exam Present: alert, oriented X3 Results Labs on day of discharge: Labs from last 24 hours 08/03/21 08/03/21 08/03/21 12:00 09:05 06:49 Troponin I < 0.01 < 0.01 SARS-CoV-2 (PCR) Not detected Influenza A Untype (PCR) Not detected Influenza Type B (PCR) Not detected DS: Diagnosis - Discharge Diagnosis (1) Acute exacerbation of chronic obstructive airways disease Status: Acute (2) RBBB (right bundle branch block with left anterior fascicular block) Status: Acute (3) Tobacco use Status: Acute (4) Abnormal EKG Status: Acute Discharge Plan - Patient Discharge Instructions ACTIVITY: Continue current activity DIET: continue same diet Patient Instructions: Tips to Help You Stop Smoking, DI for Chronic Obstructive Pulmonary Disease, How to Quit Smoking - Follow up Plan Follow up with: Geoff George MD [Staff Physician] - 08/11/21 11:00 am Jameson Cortez MD [Physician] - 08/25/21 1:00 pm PCP,No [Non-Staff] - (follow-up in 1 week with PCP.) Disposition: Home, Self-Care Condition at discharge:: Improving Home Medications: Home Medications Medication Instructions Recorded Confirmed Type Aspirin [Aspirin 325mg Tab] 325 mg PO DAILY 02/22/17 08/03/21 History Albuterol Sulfate [Albuterol 1 puff IH Q4HP
[2021-08-04 07:21] LABS: Chloride 107 mmol/L (98-107); Potassium 3.9 mmoL/L (3.5-5.1); Sodium 141 mmol/L (136-145)
[2021-08-04 07:22] LABS: Basophils % 0.5 % (0.1-2.0); Eosinophils % 0.1 % (0.1-12.0); Hemoglobin 11.2 g/dL (14.1-18.0); Lymphocytes # 0.7 K/mm3 (0.7-4.5); Lymphocytes % 14.5 % (10-50); Mean Corpuscular HGB Conc 32.9 g/dL (31.8-35.4); Mean Corpuscular Hemoglobin 33.2 pg (27.0-31.2); Mean Corpuscular Volume 100.9 fl (80-94); Monocytes # 0.5 K/mm3 (0.1-1.0); Monocytes % 9.5 % (1.7-9.3); Neutrophils # 3.8 K/mm3 (1.8-7.8); Neutrophils % 75.4 % (37.0-80.0); Platelet Count 273 K/mm3 (142-424); Red Blood Count 3.37 M/mm3 (4.60-6.20); Red Cell Distribution Width 13.3 % (11.5-17.5); White Blood Count 5.1 K/mm3 (4.8-10.8)
[2021-08-04 07:24] LABS: Anion Gap 8.9 mEq/L (5-15); Blood Urea Nitrogen 14 mg/dl (9-20); Calcium 8.2 mg/dl (8.4-10.2); Carbon Dioxide 29 mmol/L (22.0-30.0); Creatinine Clearance Estimated 101 mL/min (50-200); Estimated Glomerular Filt Rate 137 ml/min (>60); GFR (African American) 166 ML/MIN (>60); Glucose 114 mg/dl (74-100)
[2021-08-04 07:50] VITALS: BP 110/66; PULSE 95; RESP 22; TEMP 36.5; O2SAT 92
[2021-08-04 08:00] VITALS: O2SAT 95
[2021-08-04 08:02] LABS: Chol/HDL Ratio 3.6 (1-3.5); Cholesterol 103 mg/dl (140-200); HDL Cholesterol 29 mg/dl (40-60); Triglycerides 53 mg/dl (30-150); VLDL Cholesterol 11 mg/dL (0-40)
[2021-08-04 08:13] LABS: Direct LDL Cholesterol 60.05 mg/dL (100-129)
--- NOTE | 2021-08-04 09:24 | P.PN_ITS ---
Internal Medicine - PN: Subj *Date: 08/04/21 *Time: 10:49 Interval history: No acute respiratory events overnight. Admits continued improvement in his symptoms. Exam - Constitutional Constitutional:: Present: no acute distress. Absent: comfortable - HENMT Exam HENMT: Present: normocephalic - Eye Exam Eyes:: Present: normal appearance both eyes and related structures - Neck Exam Neck:: Present: normal visual inspection - Respiratory Exam Respiratory:: Present: able to speak in complete sentences, no respiratory distress, wheezing. Absent: accessory muscle use - Cardiovascular Exam Cardiac:: Present: S1, S2 - GI Exam GI:: Present: soft - Skin Exam Skin: Present: warm, no rash - Neurological Exam Neurological: Present: alert, awake - Extremities Exam Extremities: Present: no cyanosis, no edema. Absent: no clubbing Assessment and Plan - Assessment and plan all Dx Assessment and Plan for all problems:: # COPD exacerbation: #CAP: 61-year-old male current smoker greater than [id number] smoking history. Only on albuterol/Combivent on as-needed basis. Progressively worsening respiratory symptoms. No leukocytosis. Renal function normal. Hypokalemia at 3.1. CRP elevated 141. COVID-19 and flu PCR negative. Chest x-ray no evidence of acute airspace disease/consolidation. Chronic changes hyperinflated lungs, emphysematous changes Patient was initiated on ceftriaxone and azithromycin along with methylprednisolone 40 every 6 hours. On nasal cannula 2 L saturations maintained at 95% and above. Auscultation will bilateral diffuse wheezing. Significant digital clubbing noted. No recent prior CT available for review. Interval update: Admits continued improvement in symptoms. Still wheezing, improved. Not needing oxygen maintain O2 sat goal of 90% and above. Plan: -DuoNebs every 4 hours scheduled along with budesonide every 12 scheduled. Discharge patient on Trelegy 200 inhaler therapy. 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 -Prednisone 40 mg daily x5 days. -Continue ceftriaxone azithromycin, de-escalate antibiotics azithromycin to complete a 5-day course upon discharge. #Thank you involving pulmonary in this patient care. We will follow the patient in pulmonary clinic in 4 to 6 weeks with a full PFT 6-minute walk testing and low-dose CT chest.
--- NOTE | 2021-08-04 09:43 | CARE MANAGER ---
Patient will require home O2 at 2L per NC. His O2 saturations are 85% @ rest on RA. Patient will also require home nebulizer machine for new nebulizer prescription.
[2021-08-04 10:19] VITALS: PULSE 87; PULSE 90; O2SAT 95
--- NOTE | 2021-08-04 10:41 | HMH.PHAINT ---
DISCHARGE MEDICATION COUNSELING PROVIDED. DISCUSSED THE FOLLOWING NEW PRESCRIPTIONS: -PREDNISONE (DAILY, TAKE WITH FOOD EARLIER IN THE DAY, MAY CAUSE INSOMNIA, UPSET STOMACH) -NICOTINE PATCH (DON'T SMOKE, PLACE ON UPPER ARM AND REMOVE PREVIOUS PATCH FIRST, SKIN IRRITATION POSSIBLE, REMOVE BEFORE MRI/CT) -DUONEBS (SIMILAR TO COMBIVENT, ONLY USE NEEDED FOR SHORTNESS OF BREATH, FOR NEBULIZER) -AZITHROMYCIN (DAILY, TAKE WITH OR WITHOUT FOOD, MAY CAUSE UPSET STOMACH, DIARRHEA) -NYSTATIN (FOUR TIMES DAILY, FOR THRUSH, MAY HELP SOOTHE THROAT) -TRELEGY (ONE PUFF DAILY, RINSE MOUTH AFTER USE TO PREVENT THRUSH) PATIENT ASKED IF HE WAS GIVEN SOMETHING FOR A SORE THROAT, WAS ADVISED THE NYSTATIN WOULD HELP BUT IF HE NEEDED SOMETHING ADDITIONAL THROAT LOZENGES OTC ARE AVAILABLE. PATIENT ENDORSED NO ADDITIONAL QUESTIONS AT THIS TIME.
--- NOTE | 2021-08-04 10:47 | PC.NURSE ---
patient ready for d/c waiting for O2 tank and Nebulizer machine
--- NOTE | 2021-08-04 11:05 | DIET.NUTRFU ---
RD saw patient today with plans to discharge later. He indicated he was having swallowing issues upon admit. Upon visit he indicated he has bumps in his mouth from his inhaler, consulted Rosemary for possible thrush. He will discharge on nystatin for a 10 days tx. Patient appeared thin upon visit when asked about meal intake he indicated he eats a good breakfast and crackers the rest of the day. He lives alone with his mom up the street who is also declining in meal intake. Suggested a supplements since he does not cook much for himself and he frowned at that possibly d/t expense. He was willing to discuss meals on wheels with social science professor if qualifies. He did report weight loss of about 6# over last couple months. restuarant crew worker aware.
--- NOTE | 2021-08-05 12:45 | CARE MANAGER ---
Contacted patient related to follow up from hospital discharge. Patient states that he has picked up all his medications except the nicotine patch which the insurance didn't cover and he didn't want due to continuing to smoke. Discussed the importance of not smoking with the Oxygen. He verbalized understanding. He is aware of his follow up appointments. We also discussed that meals on wheels may be calling him to set up meals as well. Denies any other questions or concerns. ISSAC Sanders
== END 2021-08-04 11:52 | disposition home or self-care (01) ==
LOC: ER 05:47 → 2ND 07:00
PROVIDERS: Nurse Practitioner Family; Admitting Provider Internal Medicine Adolescent Medicine; Emergency Provider Emergency Medicine; PCP Emergency Medicine; Visit Provider Internal Medicine Adolescent Medicine
DX: J44.1 Chronic obstructive pulmonary disease with (acute) exacerbation (principal); J18.9 Pneumonia, unspecified organism; F17.210 Nicotine dependence, cigarettes, uncomplicated; J96.01 Acute respiratory failure with hypoxia; I45.2 Bifascicular block; R94.31 Abnormal electrocardiogram [ECG] [EKG]; Z79.899 Other long term (current) drug therapy; Z20.822 Contact with and (suspected) exposure to COVID-19; R06.9 Unspecified abnormalities of breathing
CPT/HCPCS: G0378; 36415; 71045; 80048; 80053; 80061; 82803; 83605; 83735; 83880; 84145; 84484; 85025; 85651; 86140; 87040; 87070; 87077; 87186; 87205; 93005; 93306; 94640; 99285; C9803; J0456; J0696; U0003; U0005

== ENCOUNTER 2022-01-20 10:33 | Emergency (ER) | payer SELFPAY ==
[2022-01-20] VITALS (11 sets, daily range): BP systolic 129–158; BP diastolic 77–93; PULSE 91–112; RESP 18–20; TEMP 36.6; O2SAT 92–98; BMI 18.1
--- NOTE | 2022-01-20 10:33 | ECG_ITS ---
APPROVED REPORT Exam: Resting ECG HR:99 bpm ECG Measurements Heart Rate 99 AXES TN 139 P 79 QRSd 137 QRS 75 QT 366 T 73 QTc 422 Conclusion SINUS RHYTHM Borderline Right axis deviation RIGHT BUNDLE BRANCH BLOCK [120+ ms QRS DURATION, UPRIGHT V1, 40+ ms S IN I/aVL/V4/V5/V6] ABNORMAL ECG UNCONFIRMED REPORT Electronically signed by : Zaheer Lopez MD 01/20/2022 16:37:03
--- NOTE | 2022-01-20 10:34 | XR_ITS ---
FINAL REPORT CLINICAL HISTORY: soa/COPD COMPARISON: July 2021 FINDINGS: The heart size is normal. The mediastinum is within normal limits. The lungs are hyperinflated consistent with COPD. There are bibasilar opacities. There is no pleural effusion. There is no pneumothorax. The bony thorax is intact. IMPRESSION: Bibasilar opacities could represent atelectasis or pneumonia. Reviewed, Interpreted and Dictated by Giovanny Trujillo III, MD Transcribed by Shun Bianchi Authenticated and . [facility]
--- NOTE | 2022-01-20 10:35 | PC.NURSE ---
ANA SINGH at
--- NOTE | 2022-01-20 10:40 | HMH.EDGENADL ---
Discharge Plan Disposition Patient Disposition: Home, Self-Care Condition: Fair Prescriptions Prescriptions: New levofloxacin 750 mg tablet 750 mg PO DAILY 5 Days Qty: 5 0RF prednisone 50 mg tablet 50 mg PO DAILY 5 Days Qty: 5 0RF No Action furosemide [Lasix] 20 mg tablet 20 mg PO DAILY Qty: 30 5RF cyproheptadine 4 MG tablet 4 mg PO BID albuterol sulfate 8.5 GM HFA aerosol inhaler 1 puff IH Q4HP PRN (Reason: Shortness Of Breath) ipratropium-albuterol 120 PUFF mist 1 puff IH Q6HP PRN (Reason: Shortness Of Breath) ipratropium-albuterol 3 ML solution for nebulization 3 ml IH Q6HP PRN (Reason: Dyspnea) 30 Days Qty: 120 0RF prednisone 20 MG tablet 40 mg PO DAILY 4 Days Qty: 8 0RF azithromycin 250 MG tablet 250 mg PO DAILY 4 Days Qty: 4 0RF nystatin 500,000 UNIT/5 ML suspension 500,000 unit PO QID 10 Days Qty: 200 0RF fbfqhxgroom-ebdfawesu-jfyybhre 28 PUFF blister with device 1 puffs IH DAILY 30 Days Qty: 1 0RF aspirin 325 MG tablet 325 mg PO DAILY Activity Restrictions/Add. Instructions Additional Instructions/Restrictions: At this time was felt you are safe to be discharged home. If new or worsening symptoms please do not hesitate to return to the emergency department. Please take your medication as prescribed. Clinical Impressions Clinical Impression: COPD exacerbation, Pneumonia, Acute hypokalemia Instructions Patient Instructions: Pneumonia-Adult, DI for Chronic Obstructive Pulmonary Disease Discharge ED Provider: Juan Malave General Adult HPI General Chief complaint: Shortness of Breath/Dyspnea Stated complaint: SOA Time Seen by Provider: 01/20/22 10:40 History of Present Illness HPI narrative: Patient is a 61-year-old male with past medical history of COPD on 3 L nasal cannula at home, 1.5 pack/day smoker who presents to the emergency department for evaluation of respiratory distress onset was acute, occurring 3 days ago, increased productive cough. Patient has not on controlled medications secondary to affordability. He does have a metered-dose inhaler at home for which symptoms are refractory. Patient called EMS and he was escalated to 4 L nasal cannula from his baseline of 3, 125 mg of Solu-Medrol was administered as well as 1 DuoNeb. There is no associated substernal chest pain that is moderate in intensity, nonmodifiable. No other acute complaints at this time. Related Data Home Medications Medication Instructions Recorded Confirmed aspirin 325 mg tablet 325 mg PO DAILY [facility] 02/22/17 08/11/21 albuterol sulfate 90 mcg/actuation 1 puff inhalation Q4HP PRN 08/03/21 08/11/21 aerosol inhaler Shortness Of Breath cyproheptadine 4 mg tablet 4 mg PO BID Appetite stimulant 08/03/21 08/11/21 ipratropium 20 mcg-albuterol 100 1 puff inhalation Q6HP PRN 08/03/21 08/11/21 mcg/actuation mist for inhalation Shortness Of Breath Previous Rx's Medication Instructions Recorded azithromycin 250 mg tablet 250 mg PO DAILY 4 days #4 tabs 08/04/21 fluticasone fur. 100 mcg-umeclid 1 puffs inhalation DAILY 30 days 08/04/21 62.5 mcg-vilant 25 mcg #1 ea inhalat.powder ipratropium 0.5 mg-albuterol 3 mg 3 ml inhalation Q6HP PRN Dyspnea 08/04/21 (2.5 mg base)/3 mL nebulization 30 days #120 ea soln nystatin 100,000 unit/mL oral 500,000 unit (5 mL) PO QID 10 days 08/04/21 suspension #200 mL prednisone 20 mg tablet 40 mg PO DAILY 4 days #8 tabs 08/04/21 furosemide 20 mg tablet (Lasix) 20 mg PO DAILY #30 tabs 08/11/21 levofloxacin 750 mg tablet 750 mg PO DAILY 5 days #5 tabs 01/20/22 prednisone 50 mg tablet 50 mg PO DAILY 5 days #5 tabs 01/20/22 Allergies Allergy/AdvReac Type Severity Reaction Status Date / Time No Known Allergies Allergy Verified 08/11/21 11:15 [facility] Disclaimer: The information contained in this section may have been updated after the patient was seen, as this information can be updated by other
[2022-01-20 10:45] LABS: Coronavirus 19, PCR Not Detected (NotDetected); Influenza A, PCR Not Detected (NotDetected); Influenza B, PCR Not Detected (NotDetected)
[2022-01-20 10:47] LABS: VBG Base Excess 9.9 mmol/L (-2.4-2.3); VBG HCO3 36.1 mmol/L (23-30); VBG Oxygen Saturation 76.3 % (50-70); VBG PCO2 72.1 mmol/L (35-51); VBG PH 7.32 mmol/L (7.31-7.41); VBG PO2 43.4 mmol/L (28-40); VBG Total CO2 38.3 mmol/L (23-27)
--- NOTE | 2022-01-20 10:49 | PC.NURSE ---
RESPIRATORY NOTIFIED OF VBG AND NEB TREATMENT
--- NOTE | 2022-01-20 10:49 | PC.NURSE ---
1027 DR. MUNGUIA AND THIS RN AT BEDSIDE
[2022-01-20 10:52] LABS: Basophils # 0.1 K/mm3 (0-0.2); Basophils % 1.4 % (0.1-2.0); Eosinophils # 0.1 K/mm3 (0.0-0.4); Eosinophils % 1.3 % (0.1-12.0); Hematocrit 40.9 % (42.0-52.0); Hemoglobin 12.8 g/dL (14.1-18.0); Lymphocytes # 1.4 K/mm3 (0.7-4.5); Mean Corpuscular HGB Conc 31.3 g/dL (31.8-35.4); Mean Corpuscular Hemoglobin 31.1 pg (27.0-31.2); Mean Corpuscular Volume 99.3 fl (80-94); Mean Platelet Volume 7.5 fl (7.4-10.4); Monocytes # 0.3 K/mm3 (0.1-1.0); Monocytes % 5.7 % (1.7-9.3); Neutrophils # 3.2 K/mm3 (1.8-7.8); Neutrophils % 63.6 % (37.0-80.0); Platelet Count 406 K/mm3 (142-424); Red Blood Count 4.11 M/mm3 (4.60-6.20); Red Cell Distribution Width 13.1 % (11.5-17.5)
[2022-01-20 10:59] LABS: Blood Urea Nitrogen 19 mg/dl (9-20); Calcium 9.5 mg/dl (8.4-10.2); Chloride 98 mmol/L (98-107); Creatinine Clearance Estimated 97 mL/min (50-200); Estimated Glomerular Filt Rate 137 ml/min (>60); GFR (African American) 166 ML/MIN (>60); Glucose 111 mg/dl (74-100); Sodium 146 mmol/L (136-145)
[2022-01-20 11:01] LABS: Lactic Acid 1.3 mmol/L (0.7-2.1)
[2022-01-20 11:04] LABS: D-Dimer 0.61 ug/mL (0.0-0.5)
[2022-01-20 11:07] LABS: Anion Gap 13.9 mEq/L (5-15); Carbon Dioxide 37 mmol/L (22.0-30.0)
[2022-01-20 11:09] LABS: Potassium 2.9 mmoL/L (3.5-5.1)
--- NOTE | 2022-01-20 11:09 | PC.NURSE ---
1109 CRITICAL LAB RECEIVED FROM MARTIN IN LAB K+ 2.9, PT NAME AND R/V. DR. MUNGUIA NOTIFIED
--- NOTE | 2022-01-20 11:13 | PC.NURSE ---
took patient a urinal, he is sitting up on side of bed at this time
[2022-01-20 11:14] LABS: Troponin I < 0.01 ng/ml (0.00-0.034)
--- NOTE | 2022-01-20 11:58 | PC.NURSE ---
ROUNDED ON PT AT THIS TIME. PT UPDATED ON POC. NO NEEDS AT THIS TIME
--- NOTE | 2022-01-20 12:50 | PC.NURSE ---
1239 REPEAT TROP SENT TO LAB
[2022-01-20 13:07] LABS: Troponin I < 0.01 ng/ml (0.00-0.034)
== END 2022-01-20 14:00 | disposition home or self-care (01) ==
PROVIDERS: Emergency Provider Emergency Medicine
DX: J44.1 Chronic obstructive pulmonary disease with (acute) exacerbation (principal); J18.9 Pneumonia, unspecified organism; E87.6 Hypokalemia; Z99.81 Dependence on supplemental oxygen; Z72.0 Tobacco use
CPT/HCPCS: 71045; 80048; 82803; 83605; 84484; 85025; 85378; 93005; 94640; 96365; 99285; C9803; J0456; U0003; U0005

== ENCOUNTER 2022-02-14 05:58 | Emergency (ER) | payer OTHER, SELFPAY ==
[2022-02-14 05:58] VITALS: BP 153/84; PULSE 95; RESP 24; TEMP 37.1; O2SAT 93; BMI 17.1
--- NOTE | 2022-02-14 06:02 | ECG_ITS ---
APPROVED REPORT Exam: Resting ECG HR:99 bpm ECG Measurements Heart Rate 99 AXES MA 132 P 75 QRSd 120 QRS 141 QT 343 T 75 QTc 399 Conclusion SINUS RHYTHM RIGHT BUNDLE BRANCH BLOCK [120+ ms QRS DURATION, UPRIGHT V1, 40+ ms S IN I/aVL/V4/V5/V6] LEFT POSTERIOR FASCICULAR BLOCK [QRS AXIS > 109, INFERIOR Q] ABNORMAL ECG UNCONFIRMED REPORT Electronically signed by : Zaheer Lopez MD 02/14/2022 16:57:50
--- NOTE | 2022-02-14 06:05 | XR_ITS ---
PROCEDURE INFORMATION: Exam: XR Chest Exam date and time: 02/14/2022 6:27 AM Age: 61 years old Clinical indication: Shortness of breath; Additional info: SOA x1 week TECHNIQUE: Imaging protocol: Radiologic exam of the chest. Views: 1 view. COMPARISON: CR XR CHEST PORTABLE 01/20/2022 10:50 AM FINDINGS: Lungs: Severe COPD and interstitial disease. Pleural spaces: No pleural effusion. Heart/Mediastinum: Normal configuration of the heart. Bones/joints: Mild degenerative change. IMPRESSION: Severe COPD and interstitial disease.
[2022-02-14 06:24] LABS: Coronavirus 19, PCR Not Detected (NotDetected); Influenza A, PCR Not Detected (NotDetected); Influenza B, PCR Not Detected (NotDetected)
[2022-02-14 06:25] VITALS: PULSE 87; PULSE 89
[2022-02-14 06:32] LABS: Basophils % 0.5 % (0.1-2.0); Eosinophils # 0.1 K/mm3 (0.0-0.4); Hematocrit 40.9 % (42.0-52.0); Hemoglobin 12.8 g/dL (14.1-18.0); Lymphocytes # 1.6 K/mm3 (0.7-4.5); Mean Corpuscular HGB Conc 31.4 g/dL (31.8-35.4); Mean Corpuscular Hemoglobin 32.2 pg (27.0-31.2); Mean Corpuscular Volume 102.4 fl (80-94); Mean Platelet Volume 7.5 fl (7.4-10.4); Monocytes # 0.3 K/mm3 (0.1-1.0); Monocytes % 6.3 % (1.7-9.3); Neutrophils # 3.3 K/mm3 (1.8-7.8); Neutrophils % 62.2 % (37.0-80.0); Platelet Count 379 K/mm3 (142-424); Red Blood Count 3.99 M/mm3 (4.60-6.20); Red Cell Distribution Width 14.1 % (11.5-17.5); White Blood Count 5.3 K/mm3 (4.8-10.8)
[2022-02-14 06:35] LABS: VBG Base Excess 10.2 mmol/L (-2.4-2.3); VBG HCO3 34.9 mmol/L (23-30); VBG Oxygen Saturation 75.8 % (50-70); VBG PCO2 56.9 mmol/L (35-51); VBG PH 7.41 mmol/L (7.31-7.41); VBG Total CO2 36.7 mmol/L (23-27)
[2022-02-14 06:37] LABS: Alanine Aminotransferase 17 U/L (12-78); Albumin Level 3.9 g/dl (3.5-5.0); Alkaline Phosphatase 55 U/L (38-126); Aspartate Amino Transferase 26 U/L (17-59); Bilirubin,Indirect 0.2 mg/dL (0.0-0.9); Bilirubin,Total 0.2 mg/dl (0.2-1.3); Bilirubin,Unconjugated 0.2 mg/dL (0.0-1.1); Blood Urea Nitrogen 16 mg/dl (9-20); Calcium 8.4 mg/dl (8.4-10.2); Carbon Dioxide 38 mmol/L (22.0-30.0); Chloride 100 mmol/L (98-107); Creatinine Clearance Estimated 76 mL/min (50-200); Estimated Glomerular Filt Rate 115 ml/min (>60); GFR (African American) 139 ML/MIN (>60); Glucose 121 mg/dl (74-100); Lactic Acid 1.4 mmol/L (0.7-2.1); Potassium 3.1 mmoL/L (3.5-5.1); Total Protein,Serum 6.7 g/dl (6.3-8.2)
[2022-02-14 06:43] LABS: C-Reactive Protein 4.1 mg/L (0-4)
--- NOTE | 2022-02-14 06:44 | HMH.EDGENADL ---
Discharge Plan Disposition Patient Disposition: Home, Self-Care Condition: Good Prescriptions Prescriptions: New prednisone 20 mg tablet 40 mg PO DAILY 5 Days Qty: 10 0RF doxycycline hyclate 100 mg tablet 100 mg PO BID 10 Days Qty: 20 0RF No Action furosemide [Lasix] 20 mg tablet 20 mg PO DAILY Qty: 30 5RF cyproheptadine 4 MG tablet 4 mg PO BID albuterol sulfate 8.5 GM HFA aerosol inhaler 1 puff IH Q4HP PRN (Reason: Shortness Of Breath) ipratropium-albuterol 120 PUFF mist 1 puff IH Q6HP PRN (Reason: Shortness Of Breath) ipratropium-albuterol 3 ML solution for nebulization 3 ml IH Q6HP PRN (Reason: Dyspnea) 30 Days Qty: 120 0RF prednisone 20 MG tablet 40 mg PO DAILY 4 Days Qty: 8 0RF azithromycin 250 MG tablet 250 mg PO DAILY 4 Days Qty: 4 0RF nystatin 500,000 UNIT/5 ML suspension 500,000 unit PO QID 10 Days Qty: 200 0RF cvsirpmjfxl-enqjyxsfj-fgztjbzb 28 PUFF blister with device 1 puffs IH DAILY 30 Days Qty: 1 0RF aspirin 325 MG tablet 325 mg PO DAILY levofloxacin 750 mg tablet 750 mg PO DAILY 5 Days Qty: 5 0RF prednisone 50 mg tablet 50 mg PO DAILY 5 Days Qty: 5 0RF Referrals Follow up/Referrals: Brett Lopes MD [Primary Care Provider] - See instructions Activity Restrictions/Add. Instructions Additional Instructions/Restrictions: You were evaluated in the emergency department today for shortness of breath. At this time, we feel that your symptoms are due to a COPD exacerbation. Use your breathing treatments at home every 4 hours. Continue wearing your home oxygen. thermocouple tester your prescription for your steroids and antibiotics and take them as prescribed. Follow-up with your primary care provider over the next 48 hours. Return to the emergency department for any new or worsening symptoms. Clinical Impressions Clinical Impression: COPD exacerbation Instructions Patient Instructions: DI for Chronic Obstructive Pulmonary Disease, DI for Shortness of Breath Discharge ED Provider: Ebony Chung General Adult HPI General Chief complaint: Shortness of Breath/Dyspnea Stated complaint: SOA Time Seen by Provider: 02/14/22 06:04 Mode of Arrival: EMS Source of Information: Patient Limitations: No Limitations Description of Symptoms (Recalled from ER Triage Doc. by RN): pt c/o increasing SOA and chest pasin through back History of Present Illness HPI narrative: This patient is a 61-year-old male with a history of COPD who wears 3 L nasal cannula at home chronically, right bundle branch block, hypokalemia, and pulmonary hypertension presented to the emergency department for evaluation with concern for shortness of breath. He reports that he is always short of breath, however his worse over the last several days. He states that he has been up all night struggling to breathe. Given this, he decided to come to the emergency department for evaluation. He has been using breathing treatments at home with minimal improvement. He denies any fevers, chills, abdominal pain, nausea, vomiting, changes in bowel movements, or other concerns. He does admit to chest pain on review of systems that is substernal. Nothing seems to make it better or worse. Related Data Home Medications Medication Instructions Recorded Confirmed aspirin 325 mg tablet 325 mg PO DAILY [facility] 02/22/17 08/11/21 albuterol sulfate 90 mcg/actuation 1 puff inhalation Q4HP PRN 08/03/21 08/11/21 aerosol inhaler Shortness Of Breath cyproheptadine 4 mg tablet 4 mg PO BID Appetite stimulant 08/03/21 08/11/21 ipratropium 20 mcg-albuterol 100 1 puff inhalation Q6HP PRN 08/03/21 08/11/21 mcg/actuation mist for inhalation Shortness Of Breath Previous Rx's Medication Instructions Recorded azithromycin 250 mg tablet 250 mg PO DAILY 4 days #4 tabs 08/04/21 fluticasone fur. 100 mcg-umeclid 1 puffs inhalation DAILY 30 days 08/04/21 62.5 mcg-vilant 25 mcg #1 ea inhalat
[2022-02-14 06:57] LABS: Procalcitonin 0.049 ng/mL (0.0-2.0)
[2022-02-14 06:59] LABS: Anion Gap 8.1 mEq/L (5-15); Sodium 143 mmol/L (136-145)
[2022-02-14 07:00] VITALS: BP 140/78; PULSE 100; RESP 18; O2SAT 99
[2022-02-14 07:18] LABS: Troponin I < 0.01 ng/ml (0.00-0.034)
[2022-02-14 07:30] VITALS: BP 137/73; PULSE 98; RESP 20; O2SAT 94
[2022-02-14 08:18] VITALS: BP 144/80; PULSE 98; RESP 20; TEMP 37.1; O2SAT 94
== END 2022-02-14 08:18 | disposition home or self-care (01) ==
PROVIDERS: Emergency Provider Emergency Medicine; PCP Emergency Medicine
DX: J44.1 Chronic obstructive pulmonary disease with (acute) exacerbation (principal); I45.10 Unspecified right bundle-branch block; I27.20 Pulmonary hypertension, unspecified; F17.210 Nicotine dependence, cigarettes, uncomplicated; Z20.822 Contact with and (suspected) exposure to COVID-19
CPT/HCPCS: 71045; 80048; 80076; 82803; 83605; 83880; 84145; 84484; 85025; 86140; 87040; 93005; 96374; 99285; C9803; U0003; U0005

== ENCOUNTER 2022-02-15 02:19 | Observation (INO) | payer OTHER, SELFPAY ==
[2022-02-15] VITALS (20 sets, daily range): BP systolic 130–179; BP diastolic 65–98; PULSE 77–121; RESP 18–26; TEMP 36.2–36.6; O2SAT 90–99; BMI 22.9; BMI 16.6; BMI 19.0
--- NOTE | 2022-02-15 02:22 | ECG_ITS ---
APPROVED REPORT Exam: Resting ECG HR:111 bpm ECG Measurements Heart Rate 111 AXES AL 152 P 79 QRSd 122 QRS 61 QT 329 T 77 QTc 395 Conclusion SINUS TACHYCARDIA Atrial abnormality RIGHT BUNDLE BRANCH BLOCK [120+ ms QRS DURATION, UPRIGHT V1, 40+ ms S IN I/aVL/V4/V5/V6] ABNORMAL ECG UNCONFIRMED REPORT Electronically signed by : Zaheer Lopez MD 02/16/2022 08:13:00
--- NOTE | 2022-02-15 02:23 | XR_ITS ---
PROCEDURE INFORMATION: Exam: XR Chest Exam date and time: 02/15/2022 2:53 AM Age: 61 years old Clinical indication: Condition or disease; Lung condition and disease; Copd; Shortness of breath; Additional info: SOA TECHNIQUE: Imaging protocol: Radiologic exam of the chest. Views: 1 view. COMPARISON: CR (CHEST, CXR AP LANDSCAPE) 02/14/2022 6:27 AM FINDINGS: Lungs: There are stable findings of emphysema and bilateral lower lobe interstitial prominence in both lungs. No carrie pulmonary consolidation seen. Pleural spaces: Unremarkable. No pleural effusion. No pneumothorax. Heart/Mediastinum: Unremarkable. No cardiomegaly. Bones/joints: Unremarkable. IMPRESSION: No acute disease. Chronic findings of emphysema.
--- NOTE | 2022-02-15 02:53 | HMH.EDSOB ---
Discharge Plan Disposition Patient Disposition: Admitted As Inpatient Chief Complaint: Shortness of Breath/Dyspnea Prescriptions Prescriptions: No Action furosemide [Lasix] 20 mg tablet 20 mg PO DAILY Qty: 30 5RF cyproheptadine 4 MG tablet 4 mg PO BID albuterol sulfate 8.5 GM HFA aerosol inhaler 1 puff IH Q4HP PRN (Reason: Shortness Of Breath) ipratropium-albuterol 120 PUFF mist 1 puff IH Q6HP PRN (Reason: Shortness Of Breath) ipratropium-albuterol 3 ML solution for nebulization 3 ml IH Q6HP PRN (Reason: Dyspnea) 30 Days Qty: 120 0RF prednisone 20 MG tablet 40 mg PO DAILY 4 Days Qty: 8 0RF azithromycin 250 MG tablet 250 mg PO DAILY 4 Days Qty: 4 0RF nystatin 500,000 UNIT/5 ML suspension 500,000 unit PO QID 10 Days Qty: 200 0RF zpjqmuwwgxg-rdqdejkbu-torldoqa 28 PUFF blister with device 1 puffs IH DAILY 30 Days Qty: 1 0RF prednisone 20 mg tablet 40 mg PO DAILY 5 Days Qty: 10 0RF doxycycline hyclate 100 mg tablet 100 mg PO BID 10 Days Qty: 20 0RF aspirin 325 MG tablet 325 mg PO DAILY levofloxacin 750 mg tablet 750 mg PO DAILY 5 Days Qty: 5 0RF prednisone 50 mg tablet 50 mg PO DAILY 5 Days Qty: 5 0RF Referrals Follow up/Referrals: Brett Lopes MD [Primary Care Provider] - See instructions Clinical Impressions Clinical Impression: Acute exacerbation of chronic obstructive airways disease, RBBB (right bundle branch block with left anterior fascicular block), Tobacco use Discharge ED Provider: Miguel Nettles Resp/SOB HPI General Chief Complaint: Shortness of Breath/Dyspnea Stated Complaint: short of air Time Seen by Provider: 02/15/22 02:53 Mode of Arrival: EMS Source of Information: Patient, EMS and Medical Record Limitations: No Limitations Description of Symptoms (Recalled from ER Triage Doc. by RN): Patient was seen at [facility] 02/14/21 for copd exacerbation, dc'd home. patient returns to the er tonight via ems with complaints of shortness of breath, which he was experiencing last night. Patient states he gave himself a duoneb treatement at 0100 but he did not feel any relief so he called ems. History of Present Illness pt with copd and has inc sx giorgi - pt had been seen yesterday and has not improved - reports compliance with meds - uses trelegy and nebulizer and on steroids - no chest pain MD Complaint: shortness of breath and cough Onset (ago): day(s) Severity: moderate Consistency/Duration: intermittent Known history of: COPD Associated symptoms: cough and wheezing Treatment prior to arrival: oxygen and bronchodilator Related Data Home oxygen amount: 2 liters Home Medications Medication Instructions Recorded Confirmed aspirin 325 mg tablet 325 mg PO DAILY [facility] 02/22/17 08/11/21 albuterol sulfate 90 mcg/actuation 1 puff inhalation Q4HP PRN 08/03/21 08/11/21 aerosol inhaler Shortness Of Breath cyproheptadine 4 mg tablet 4 mg PO BID Appetite stimulant 08/03/21 08/11/21 ipratropium 20 mcg-albuterol 100 1 puff inhalation Q6HP PRN 08/03/21 08/11/21 mcg/actuation mist for inhalation Shortness Of Breath Previous Rx's Medication Instructions Recorded azithromycin 250 mg tablet 250 mg PO DAILY 4 days #4 tabs 08/04/21 fluticasone fur. 100 mcg-umeclid 1 puffs inhalation DAILY 30 days 08/04/21 62.5 mcg-vilant 25 mcg #1 ea inhalat.powder ipratropium 0.5 mg-albuterol 3 mg 3 ml inhalation Q6HP PRN Dyspnea 08/04/21 (2.5 mg base)/3 mL nebulization 30 days #120 ea soln nystatin 100,000 unit/mL oral 500,000 unit (5 mL) PO QID 10 days 08/04/21 suspension #200 mL prednisone 20 mg tablet 40 mg PO DAILY 4 days #8 tabs 08/04/21 furosemide 20 mg tablet (Lasix) 20 mg PO DAILY #30 tabs 08/11/21 levofloxacin 750 mg tablet 750 mg PO DAILY 5 days #5 tabs 01/20/22 prednisone 50 mg tablet 50 mg PO DAILY 5 days #5 tabs 01/20/22 doxycycline hyclate 100 mg tablet 100 mg PO BID 10 days #20 tabs 02/14/22 prednisone 20 mg tablet 40 mg P
[2022-02-15 02:55] LABS: Chloride 101 mmol/L (98-107); Potassium 3.7 mmoL/L (3.5-5.1); Sodium 141 mmol/L (136-145)
[2022-02-15 02:56] LABS: Basophils % 0.3 % (0.1-2.0); Eosinophils # 0.1 K/mm3 (0.0-0.4); Eosinophils % 0.8 % (0.1-12.0); Hemoglobin 12.7 g/dL (14.1-18.0); Lymphocytes # 0.6 K/mm3 (0.7-4.5); Lymphocytes % 9.2 % (10-50); Mean Corpuscular HGB Conc 32.6 g/dL (31.8-35.4); Mean Corpuscular Hemoglobin 31.9 pg (27.0-31.2); Mean Corpuscular Volume 97.7 fl (80-94); Mean Platelet Volume 7.3 fl (7.4-10.4); Monocytes # 0.7 K/mm3 (0.1-1.0); Monocytes % 9.6 % (1.7-9.3); Neutrophils # 5.6 K/mm3 (1.8-7.8); Neutrophils % 80.2 % (37.0-80.0); Platelet Count 432 K/mm3 (142-424)
[2022-02-15 02:57] LABS: Blood Urea Nitrogen 15 mg/dl (9-20)
[2022-02-15 02:58] LABS: Alanine Aminotransferase 17 U/L (12-78); Albumin Level 4.3 g/dl (3.5-5.0); Albumin/Globulin Ratio 1.5 (1.1-1.8); Alkaline Phosphatase 57 U/L (38-126); Anion Gap 8.7 mEq/L (5-15); Aspartate Amino Transferase 23 U/L (17-59); Bilirubin,Total 0.4 mg/dl (0.2-1.3); Carbon Dioxide 35 mmol/L (22.0-30.0); Creatinine Clearance Estimated 107 mL/min (50-200); Estimated Glomerular Filt Rate 170 ml/min (>60); GFR (African American) 205 ML/MIN (>60); Globulin 2.8 g/dL (1.3-3.2); Glucose 131 mg/dl (74-100); Total Protein,Serum 7.1 g/dl (6.3-8.2)
[2022-02-15 03:02] LABS: ABG Base Excess 7.7 mmol/L (-2.4-2.3); ABG HCO3 31.9 mmhg (22.0-26.0); ABG Oxygen Saturation 94 % (90-100); ABG PCO2 48.2 mmhg (35.0-45.0); ABG PH 7.44 mmol/L (7.35-7.45); ABG PO2 66.5 mmhg (80-100); ABG TCO2 33.3 mmhg (23-27); Allen's Test Acceptable; Oxygen 2.5L %; Source Right Radial
[2022-02-15 03:07] LABS: NT Pro Brain Natriuretic Pep. 60.7 pg/mL (0-125)
--- NOTE | 2022-02-15 03:18 | CT_ITS ---
PROCEDURE INFORMATION: Exam: CTA Chest With Contrast Exam date and time: 02/15/2022 3:32 AM Age: 61 years old Clinical indication: Condition or disease; Lung condition and disease; Copd; Shortness of breath; Additional info: Short of air TECHNIQUE: Imaging protocol: Computed tomographic angiography of the chest with contrast. 3D rendering (Not supervised by radiologist): MIP and/or 3D reconstructed images were created by the technologist. Radiation optimization: All CT scans at this facility use at least one of these dose optimization techniques: automated exposure control; mA and/or kV adjustment per patient size (includes targeted exams where dose is matched to clinical indication); or iterative reconstruction. Contrast material: ISOVUE; Contrast volume: 70 ml; Contrast route: INTRAVENOUS (IV); COMPARISON: CR XR CHEST PORTABLE 02/15/2022 2:53 AM FINDINGS: Pulmonary arteries: Normal. No pulmonary emboli. Aorta: Unremarkable. No aortic aneurysm. No aortic dissection. Lungs: Significant changes of emphysema are noted throughout both lungs, most pronounced in the upper lungs. No significant active pulmonary infiltrate seen. Pleural spaces: Unremarkable. No pneumothorax. No pleural effusion. Heart: Unremarkable. No cardiomegaly. No pericardial effusion. Lymph nodes: Unremarkable. No enlarged lymph nodes. Bones/joints: Unremarkable. No acute fracture. Soft tissues: Unremarkable. IMPRESSION: Significant chronic emphysema. No evidence of pulmonary embolus or other acute abnormality in the chest. COMMENTS: In the absence of a history or active diagnosis of lung cancer, it is recommended that this patient with emphysema be evaluated for enrollment in a low dose CT lung cancer screening program.
[2022-02-15 03:22] LABS: Troponin I < 0.01 ng/ml (0.00-0.034)
--- NOTE | 2022-02-15 04:14 | EXP.HP ---
History of Present Illness *Admission Date: 02/15/22 *Reason for visit:: Shortness of air, productive cough *History of present illness: Mr. Montano is a 61-year-old male with a past medical history of COPD, home oxygen dependent at 2-3 L, chronic tobacco use with a 52-pack year history. He presents to [facility] due to ongoing shortness of air that he reports has been worsening over 1 month, but particularly worsening over the last couple days. He reports that the shortness of air is associated with a productive cough. He denies fevers, body aches or chills. He was seen in the ER the day prior to today and diagnosed with Acute Exacerbation of COPD, he was prescribed Doxycycline and Prednisone. He denies filling the prescriptions. In the ER, Cxray shows emphysema with no acute cardiopulmonary findings. CTA of the chest shows severe emphysema. EKG shows a sinus tachycardia with rate of 111 with a RBBB. Troponin is <0.01. BNP is 607. CBC is unremarkable. Flu and Covid testing were negative on 02/14. ABG shows a pCo2 of 48.2 and po2 of 66.5. This was on 32% fiO2. The patient will be admitted with initial impression: Acute on Chronic Hypoxic and Hypercapnic Respiratory Failure and Acute Exacerbation of COPD. Antibiotics, Nebulizers, Steroids and BIPAP will be initiated. The plan of care was discussed with the patient in length and detail at bedside on admission. He verbalized understanding and agreement with the plan of care. [facility] Disclaimer: The information contained in this section may have been updated after the patient was seen, as this information can be updated by other users. Medical History COPD (chronic obstructive pulmonary disease) Family History Other No significant family history Social History Smoking Status: Current every day smoker tobacco type: cigarettes packs per day: 1 alcohol intake: former substance use type: marijuana current occupational status: employed Travel in the last 8 weeks: Inside the [place] housing: house caffeine: Yes Review of Systems Review of Systems Review of systems:: pertinent systems reviewed and negative unless documented below Constitutional Constitutional: Reports system reviewed and no additional complaints, except as documented Eyes Eyes: Reports system reviewed and no additional complaints, except as documented ENT Ears, Nose, Mouth, and Throat: Reports system reviewed and no additional complaints, except as documented *Cardiovascular Cardiovascular: Reports system reviewed and no additional complaints, except as documented and Reports dyspnea *Respiratory Respiratory: Reports change in phlegm color, Reports chest congestion, Reports cough and Reports dyspnea *Gastrointestinal Gastrointestinal: Reports system reviewed and no additional complaints, except as documented *Genitourinary Genitourinary: Reports system reviewed and no additional complaints, except as documented *Musculoskeletal Musculoskeletal: Reports system reviewed and no additional complaints, except as documented Integumentary/Breasts Skin/Breast: Reports system reviewed and no additional complaints, except as documented *Neurologic Neurologic: Reports system reviewed and no additional complaints, except as documented Psychiatric Psychiatric: Reports system reviewed and no additional complaints, except as documented Endocrine Endocrine: Reports system reviewed and no additional complaints, except as documented Hematologic/Lymphatic Hematologic/Lymphatic: Reports system reviewed and no additional complaints, except as documented Meds Home Medications and Allergies Home Medications Medication Instructions Recorded Confirmed Type aspirin 325 mg tablet 325 mg PO DAILY [facility] 02/22/17 08/11/21 History albut
[2022-02-15 04:58] LABS: Coronavirus 19, PCR Not Detected (NotDetected); Influenza A, PCR Not Detected (NotDetected); Influenza B, PCR Not Detected (NotDetected)
--- NOTE | 2022-02-15 05:03 | PC.NURSE ---
PT ARRIVED TO FLOOR AT THIS TIME
[2022-02-15 06:45] LABS: ABG HCO3 28.4 mmhg (22.0-26.0); ABG Oxygen Saturation 94 % (90-100); ABG PCO2 43.9 mmhg (35.0-45.0); ABG PH 7.43 mmol/L (7.35-7.45); ABG PO2 64.5 mmhg (80-100); ABG TCO2 29.7 mmhg (23-27)
[2022-02-15 06:50] LABS: Allen's Test acceptable; Oxygen 30% %
[2022-02-15 08:29] LABS: Troponin I < 0.01 ng/ml (0.00-0.034)
[2022-02-15 08:50] LABS: Mycoplasma Pneumo IGM (Rapid) Non-Reactive (Non-Reactiv)
[2022-02-15 08:55] LABS: Troponin I < 0.01 ng/ml (0.00-0.034)
--- NOTE | 2022-02-15 13:17 | EXP.PULM.CON ---
History of Present Illness History of present illness: Mr. Montano is a 61-year-old male current smoker greater than 30 minutes history of COPD on long-term oxygen therapy at 4 L and trilogy inhaler presented to the hospital with worsening respiratory distress for the last 5 to 6 days prior to admission along with worsening cough and productive phlegm needing antibiotics and increasing oxygen requirements and pulmonary was called for further management [facility] Disclaimer: The information contained in this section may have been updated after the patient was seen, as this information can be updated by other users. Medical History (Updated 02/15/22 @ 05:17 by Michelle Boles RN) Amputation finger COPD (chronic obstructive pulmonary disease) Family History (Updated 02/15/22 @ 05:18 by Michelle Boles RN) Father Family history of cancer Other No significant family history Social History (Updated 02/15/22 @ 05:17 by Michelle Boles RN) Smoking Status: Current every day smoker tobacco type: cigarettes packs per day: 1 smoking status start date: 48 years ago years smoked: 48 alcohol intake: former substance use type: marijuana current occupational status: disabled Travel in the last 8 weeks: Inside the [facility] housing: house caffeine: Yes Review of Systems Constitutional Constitutional: Reports anorexia, Reports body ache(s) and Reports fatigue Eyes Eyes: Denies eye discharge, Denies dry eyes, Denies irritation and Denies itchy eyes ENT Ears, Nose, Mouth, and Throat: Denies epistaxis, Denies facial pain, Denies lip swelling and Denies throat swelling *Cardiovascular Cardiovascular: Reports dyspnea and Reports dyspnea on exertion *Respiratory Respiratory: Reports chest congestion, Reports cough, Reports dyspnea, Reports dyspnea on exertion, Reports excessive phlegm production and Reports wheezing *Gastrointestinal Gastrointestinal: Denies abdominal pain, Denies belching and Denies cramping *Musculoskeletal Musculoskeletal: Reports back pain, Reports myalgias and Reports other (No small joint swelling or Pain) *Neurologic Neurologic: Reports system reviewed and no additional complaints, except as documented Psychiatric Psychiatric: Denies homicidal ideation and Denies suicidal ideation Endocrine Endocrine: Reports fatigue and Denies heat intolerance Hematologic/Lymphatic Hematologic/Lymphatic: Denies easy bleeding and Denies lymphadenopathy Allergic/Immunologic Allergic/Immunologic: Denies itchy eyes, Denies lip swelling, Denies throat swelling and Reports wheezing Pulmonology Exam Inpatient Vital signs and Labs for Last 24 Hours: Temp Pulse Resp BP Pulse Ox FiO2 97.6 F 98 H 26 H 156/82 H 99 30 02/15/22 12:00 02/15/22 12:00 02/15/22 12:00 02/15/22 12:00 02/15/22 12:00 02/15/22 05:50 Laboratory Results - last 24 hr 02/15/22 02:38: WBC 7.0 D, RBC 4.00 L, Hgb 12.7 L, Hct 39.0 L, MCV 97.7 H, MCH 31.9 H, MCHC 32.6, RDW 14.0, Plt Count 432 H, MPV 7.3 L, Neut % (Auto) 80.2 H, Lymph % (Auto) 9.2 L, [place] % (Auto) 9.6 H, Eos % (Auto) 0.8, Baso % (Auto) 0.3, Neut # (Auto) 5.6, Lymph # (Auto) 0.6 L, [place] # (Auto) 0.7, Eos # (Auto) 0.1, Baso # (Auto) 0.0 02/15/22 02:38: Sodium 141, Potassium 3.7, Chloride 101, Carbon Dioxide 35 H, Anion Gap 8.7, BUN 15, Creatinine 0.50 L D, Estimated Creat Clear 107, Estimated GFR 170, Est GFR ( Amer) 205 D, Glucose 131 H, Calcium 9.0, Total Bilirubin 0.4, AST 23, ALT 17, Alkaline Phosphatase 57, Troponin I < 0.01, NT-Pro-B Natriuret Pep 60.7, Total Protein 7.1, Albumin 4.3 D, Globulin 2.8, Albumin/Globulin Ratio 1.5 02/15/22 02:38: Mycoplasma pneumon IgM Non-reactive 02/15/22 02:41: Specimen Source Right radial, O2 % 2.5l, ABG pH 7.44, ABG pCO2 48.2 H, ABG pO2 66.5 L, ABG HCO3 31.9 H, ABG Total CO2 33.3 H, ABG O2 Saturation 94, ABG Base Excess 7.7 H, Robi Test Acceptable 02/15/22 03:24: SARS-CoV-2 (PCR) Not detected, Influenza A Untype (PCR) Not det
--- NOTE | 2022-02-15 16:47 | PC.NURSE ---
Patient on 4LNC and not able to be weaned. Patient nauseas at lunch, zofran ordered. Patient also stated he was anxious about trying to sleep and has not slept in the past 2 days. Ativan ordered for night prn as well as bipap at night. VS stable. Lungs sounds diminished. Some swelling both feet but pt states swelling is much better than yesterday.
--- NOTE | 2022-02-15 21:29 | PC.NURSE ---
PATIENT TRIED TO USE BIPAP BUT SAID HE COULD NOT TOLERATE AND HAD R.T. REMOVE.
[2022-02-16] VITALS: BP 101/75; PULSE 98; RESP 26; TEMP 36.8; O2SAT 94
--- NOTE | 2022-02-16 03:50 | PC.NURSE ---
PATIENT WOULD NOT USE BIPAP. ATIVAN 1 MG PO RECEIVED AT HS AND WAS EFFECTIVE IN BRING KEEPING POATIENT CALM.,
[2022-02-16 04:00] VITALS: BP 135/85; PULSE 92; RESP 20; TEMP 36.6; O2SAT 99; BMI 19.1
[2022-02-16 06:14] VITALS: PULSE 87; PULSE 91; O2SAT 99
[2022-02-16 07:22] LABS: Chloride 100 mmol/L (98-107); Potassium 3.4 mmoL/L (3.5-5.1); Sodium 142 mmol/L (136-145)
[2022-02-16 07:24] LABS: Alanine Aminotransferase 13 U/L (12-78); Anion Gap 8.4 mEq/L (5-15); Aspartate Amino Transferase 26 U/L (17-59); Blood Urea Nitrogen 16 mg/dl (9-20); Carbon Dioxide 37 mmol/L (22.0-30.0); Creatinine Clearance Estimated 102 mL/min (50-200); Estimated Glomerular Filt Rate 137 ml/min (>60); GFR (African American) 166 ML/MIN (>60)
[2022-02-16 07:25] LABS: Albumin Level 3.5 g/dl (3.5-5.0); Albumin/Globulin Ratio 1.3 (1.1-1.8); Alkaline Phosphatase 44 U/L (38-126); Basophils % 0.4 % (0.1-2.0); Bilirubin,Total 0.5 mg/dl (0.2-1.3); Calcium 8.5 mg/dl (8.4-10.2); Eosinophils % 0.3 % (0.1-12.0); Globulin 2.8 g/dL (1.3-3.2); Glucose 94 mg/dl (74-100); Hematocrit 38.2 % (42.0-52.0); Lymphocytes # 1.4 K/mm3 (0.7-4.5); Lymphocytes % 28.3 % (10-50); Magnesium 1.8 mg/dl (1.6-2.3); Mean Corpuscular HGB Conc 31.3 g/dL (31.8-35.4); Mean Corpuscular Hemoglobin 31.5 pg (27.0-31.2); Mean Corpuscular Volume 100.6 fl (80-94); Mean Platelet Volume 7.6 fl (7.4-10.4); Monocytes # 0.5 K/mm3 (0.1-1.0); Monocytes % 9.4 % (1.7-9.3); Neutrophils % 61.5 % (37.0-80.0); Platelet Count 359 K/mm3 (142-424); Total Protein,Serum 6.3 g/dl (6.3-8.2); White Blood Count 4.8 K/mm3 (4.8-10.8)
[2022-02-16 08:00] VITALS: BP 123/71; PULSE 95; RESP 18; TEMP 36.4; O2SAT 96
[2022-02-16 11:04] VITALS: PULSE 89; PULSE 93; O2SAT 97
[2022-02-16 11:55] VITALS: BP 136/83; PULSE 93; RESP 18; TEMP 36.4; O2SAT 99
--- NOTE | 2022-02-16 13:30 | EXP.DC.SUM ---
General Admission date:: 02/15/22 HPI HPI HPI: Mr. Montano is a 61-year-old male with a past medical history of COPD, home oxygen dependent at 2-3 L, chronic tobacco use with a 52-pack year history. He presents to [facility] due to ongoing shortness of air that he reports has been worsening over 1 month, but particularly worsening over the last couple days. He reports that the shortness of air is associated with a productive cough. He denies fevers, body aches or chills. He was seen in the ER the day prior to today and diagnosed with Acute Exacerbation of COPD, he was prescribed Doxycycline and Prednisone. He denies filling the prescriptions. In the ER, Cxray shows emphysema with no acute cardiopulmonary findings. CTA of the chest shows severe emphysema. EKG shows a sinus tachycardia with rate of 111 with a RBBB. Troponin is <0.01. BNP is 607. CBC is unremarkable. Flu and Covid testing were negative on 02/14. ABG shows a pCo2 of 48.2 and po2 of 66.5. This was on 32% fiO2. The patient will be admitted with initial impression: Acute on Chronic Hypoxic and Hypercapnic Respiratory Failure and Acute Exacerbation of COPD. Antibiotics, Nebulizers, Steroids and BIPAP will be initiated. The plan of care was discussed with the patient in length and detail at bedside on admission. He verbalized understanding and agreement with the plan of care. Hospital Course Hospital Course Hospital Course: Patient admitted with acute COPD exacerbation. He was started on nebulizer, BiPAP and steroids. Patient had symptomatic improvement and returned to baseline oxygen requirement and pulmonary function. requesting dischare. Evaluated and determined to be safe and appropriate for discharge. Snd with 7 day course of levofloxacin for GNR sputum culture. Pred 40mg for 5 days. Follow up PCP Follow up with pulmonology. Exam Data for Last 24 hours Vital signs and Labs for Last 24 Hours: Temp Pulse Resp BP Pulse Ox FiO2 97.5 F L 93 H 18 136/83 99 30 02/16/22 11:55 02/16/22 11:55 02/16/22 11:55 02/16/22 11:55 02/16/22 11:55 02/15/22 21:03 Laboratory Results - last 24 hr 02/16/22 06:40: WBC 4.8 D, RBC 3.80 L, Hgb 12.0 L, Hct 38.2 L, MCV 100.6 H, MCH 31.5 H, MCHC 31.3 L, RDW 14.0, Plt Count 359, MPV 7.6, Neut % (Auto) 61.5, Lymph % (Auto) 28.3, [place] % (Auto) 9.4 H, Eos % (Auto) 0.3, Baso % (Auto) 0.4, Neut # (Auto) 3.0, Lymph # (Auto) 1.4, [place] # (Auto) 0.5, Eos # (Auto) 0.0, Baso # (Auto) 0.0 02/16/22 06:40: Sodium 142, Potassium 3.4 L, Chloride 100, Carbon Dioxide 37 H, Anion Gap 8.4, BUN 16, Creatinine 0.60 L, Estimated Creat Clear 102, Estimated GFR 137, Est GFR ( Amer) 166, Glucose 94, Calcium 8.5, Phosphorus 3.0, Magnesium 1.8, Total Bilirubin 0.5, AST 26, ALT 13, Alkaline Phosphatase 44, Total Protein 6.3, Albumin 3.5 D, Globulin 2.8, Albumin/Globulin Ratio 1.3 I & O for Last 24 hours: Intake & Output 02/13/22 02/14/22 02/15/22 02/16/22 23:59 23:59 23:59 23:59 Intake Total 600 / 600 660 / 660 Output Total 600 / 800 1125 / 1125 Balance 0 / -200 -465 / -465 Weight 55 kg 55.338 kg Microbiology Reports for the Last 24 Hours: Microbiology 02/15/22 09:00 Sputum - Expectorated Sputum Gram Stain - Final 02/15/22 09:00 Sputum - Expectorated Sputum Sputum Culture - Preliminary Gram Negative Rods Constitutional Constitutional: no acute distress, disheveled and cooperative *Routine HEENT Exam Head: Present normocephalic and atraumatic *Routine Neck Exam Neck: Present supple and full ROM *Routine Respiratory Exam Respiratory: Present prolonged expiratory phase, diminished air movement and able to speak in complete sentences; Absent accessory muscle use or wheezes *Routine Cardiovascular Exam Cardiovascular: Present RRR, Normal S1 and Normal S2 *Routine Abdominal Exam Abdominal: Present soft and distended; Absent tenderness *Routine Extremities Exam E
--- NOTE | 2022-02-16 14:15 | HMH.PHAINT1 ---
Pharmacy Intervention Comments: Met with patient and mother at bedside to discuss discharge medications. Counseled on new, changed, and continued medications. Overviewed indications, possible adverse effects, and mitigation strategies. Patient and family verbalized understanding of information provided and had no questions or concerns at this time. -Rosalia Peacock, PharmD Candidate 2022
--- NOTE | 2022-02-17 13:54 | CARE MANAGER ---
Spoke with patient for post-discharge phone interview, no issues noted.
== END 2022-02-16 15:04 | disposition home or self-care (01) ==
LOC: ER 04:01 → 2ND 04:28
PROVIDERS: Nurse Practitioner Family; Admitting Provider Student in an Organized Health Care Education/Training Program; Emergency Provider Emergency Medicine; PCP Emergency Medicine; Visit Provider Student in an Organized Health Care Education/Training Program
DX: J44.1 Chronic obstructive pulmonary disease with (acute) exacerbation (principal); Z99.81 Dependence on supplemental oxygen; F17.210 Nicotine dependence, cigarettes, uncomplicated; J96.21 Acute and chronic respiratory failure with hypoxia; J96.22 Acute and chronic respiratory failure with hypercapnia; E46 Unspecified protein-calorie malnutrition; Z68.1 Body mass index [BMI] 19.9 or less, adult; Z79.899 Other long term (current) drug therapy
CPT/HCPCS: 36415; 71045; 71275; 80053; 82803; 83735; 83880; 84100; 84484; 85025; 86738; 87070; 87077; 87186; 87205; 93005; 94640; 94660; 99285; C9803; G0378; J0456; J0696; J1956; Q9967; U0003; U0005

== ENCOUNTER 2022-03-05 03:14 | Inpatient (IN) | payer MEDICARE, OTHER, SELFPAY ==
[2022-03-05] VITALS (24 sets, daily range): BP systolic 116–156; BP diastolic 65–87; PULSE 89–151; RESP 16–26; TEMP 36.6–39.2; O2SAT 87–99; BMI 19.7; BMI 19.5
--- NOTE | 2022-03-05 | ECG_ITS ---
APPROVED REPORT Exam: Resting ECG HR:143 bpm ECG Measurements Heart Rate 143 AXES MA 108 P 71 QRSd 122 QRS 235 QT 270 T 60 QTc 353 Conclusion SINUS TACHYCARDIA WITH SHORT MA INTERVAL RIGHT BUNDLE BRANCH BLOCK LEFT POSTERIOR FASCICULAR BLOCK [QRS AXIS > 109, INFERIOR Q] ABNORMAL ECG INTERPRETATION BASED ON A DEFAULT AGE OF 40 YEARS UNCONFIRMED REPORT Electronically signed by : Zaheer Lopez MD 03/06/2022 20:18:15
--- NOTE | 2022-03-05 03:29 | XR_ITS ---
PROCEDURE INFORMATION: Exam: XR Chest Exam date and time: 03/05/2022 3:52 AM Age: 61 years old Clinical indication: Shortness of breath; Additional info: SOA TECHNIQUE: Imaging protocol: Radiologic exam of the chest. Views: 1 view. COMPARISON: CR XR CHEST PORTABLE 02/15/2022 2:53 AM FINDINGS: Lungs: Interval development infiltrate opacity within the right upper lobe and lesser extent middle lobe. Reticular opacity within the bilateral lower lobes, similar to comparison study. The lungs are hyperinflated. Pleural spaces: No pleural effusion. No pneumothorax. Heart/Mediastinum: No cardiomegaly. Vasculature: Calcific atherosclerosis of the aorta. Bones/joints: Multilevel degenerative type changes of the spine. No acute osseous abnormality. IMPRESSION: Imaging findings likely represent infectious etiology in the appropriate clinical setting.
--- NOTE | 2022-03-05 03:40 | PC.NURSE ---
RAD at for CXR
[2022-03-05 03:50] LABS: Basophils % 0.2 % (0.1-2.0); Eosinophils % 0.2 % (0.1-12.0); Hematocrit 37.5 % (42.0-52.0); Hemoglobin 12.2 g/dL (14.1-18.0); Lymphocytes # 0.8 K/mm3 (0.7-4.5); Lymphocytes % 7.7 % (10-50); Mean Corpuscular HGB Conc 32.5 g/dL (31.8-35.4); Mean Corpuscular Hemoglobin 32.8 pg (27.0-31.2); Mean Platelet Volume 8.4 fl (7.4-10.4); Monocytes # 0.6 K/mm3 (0.1-1.0); Monocytes % 5.6 % (1.7-9.3); Neutrophils % 86.3 % (37.0-80.0); Platelet Count 516 K/mm3 (142-424); Red Blood Count 3.71 M/mm3 (4.60-6.20); Red Cell Distribution Width 13.9 % (11.5-17.5); White Blood Count 10.4 K/mm3 (4.8-10.8)
[2022-03-05 03:54] LABS: ABG Base Excess 5.8 mmol/L (-2.4-2.3); ABG HCO3 28.7 mmhg (22.0-26.0); ABG Oxygen Saturation 86 % (90-100); ABG PH 7.52 mmol/L (7.35-7.45); ABG TCO2 29.8 mmhg (23-27)
[2022-03-05 03:56] LABS: Oxygen 4LPM %
[2022-03-05 03:57] LABS: Source R BRACHIAL
[2022-03-05 03:58] LABS: ABG PO2 43.8 mmhg (80-100)
[2022-03-05 04:00] LABS: MANUAL DIFFERENTIAL MANUAL DIFFERENTIAL (MANUAL DIFF)
[2022-03-05 04:04] LABS: Alanine Aminotransferase 21 U/L (12-78); Albumin Level 3.7 g/dl (3.5-5.0); Alkaline Phosphatase 77 U/L (38-126); Anion Gap 11.3 mEq/L (5-15); Aspartate Amino Transferase 25 U/L (17-59); Bilirubin,Total 0.7 mg/dl (0.2-1.3); Blood Urea Nitrogen 28 mg/dl (9-20); Calcium 9.2 mg/dl (8.4-10.2); Carbon Dioxide 34 mmol/L (22.0-30.0); Chloride 100 mmol/L (98-107); Creatinine Clearance Estimated 102 mL/min (50-200); Estimated Glomerular Filt Rate 137 ml/min (>60); GFR (African American) 166 ML/MIN (>60); Globulin 3.6 g/dL (1.3-3.2); Glucose 140 mg/dl (74-100); Lactic Acid 1.6 mmol/L (0.7-2.1); Potassium 3.3 mmoL/L (3.5-5.1); Sodium 142 mmol/L (136-145); Total Protein,Serum 7.3 g/dl (6.3-8.2)
[2022-03-05 04:18] LABS: NT Pro Brain Natriuretic Pep. 115 pg/mL (0-125)
[2022-03-05 04:24] LABS: Troponin I < 0.01 ng/ml (0.00-0.034)
[2022-03-05 04:24] LABS: Coronavirus 19, PCR Not Detected (NotDetected); Influenza A, PCR Not Detected (NotDetected); Influenza B, PCR Not Detected (NotDetected)
[2022-03-05 04:25] LABS: C-Reactive Protein 367.8 mg/L (0-4)
--- NOTE | 2022-03-05 04:28 | HMH.EDSOB ---
Discharge Plan Disposition Patient Disposition: Admitted As Inpatient Prescriptions Prescriptions: No Action albuterol sulfate 8.5 GM HFA aerosol inhaler 1 puff IH Q4HP PRN (Reason: Shortness Of Breath) ipratropium-albuterol 120 PUFF mist 1 puff IH Q6HP PRN (Reason: Shortness Of Breath) ipratropium-albuterol 3 ML solution for nebulization 3 ml IH Q6HP PRN (Reason: Dyspnea) 30 Days Qty: 120 0RF aspirin 325 MG tablet 325 mg PO DAILY [id number] 28 PUFF blister with device 1 puffs IH DAILY lorazepam 1 mg Tablet 1 mg PO HSP PRN (Reason: Anxiety) 3 Days Qty: 3 0RF Clinical Impressions Clinical Impression: Acute exacerbation of chronic obstructive airways disease Discharge ED Provider: Miguel Nettles Resp/SOB HPI General Chief Complaint: Shortness of Breath/Dyspnea Stated Complaint: SOB Time Seen by Provider: 03/05/22 04:28 Mode of Arrival: EMS Source of Information: Patient, Spouse, EMS and Medical Record Limitations: No Limitations Description of Symptoms (Recalled from ER Triage Doc. by RN): pt c/o increasing SOA x 2 days History of Present Illness progressive sob with cough over the last few days -has hx of copd - pt [facility] - MD Complaint: shortness of breath and cough Onset (ago): day(s) Severity: moderate Consistency/Duration: constant Known history of: COPD Associated symptoms: denies other symptoms Related Data Home oxygen amount: 4 liters Home Medications Medication Instructions Recorded Confirmed aspirin 325 mg tablet 325 mg PO DAILY heart health 02/22/17 03/05/22 albuterol sulfate 90 mcg/actuation 1 puff inhalation Q4HP PRN 08/03/21 03/05/22 aerosol inhaler Shortness Of Breath ipratropium 20 mcg-albuterol 100 1 puff inhalation Q6HP PRN 08/03/21 03/05/22 mcg/actuation mist for inhalation Shortness Of Breath fluticasone fur. 100 mcg-umeclid 1 puffs IH DAILY COPD 02/15/22 03/05/22 62.5 mcg-vilant 25 mcg inhalat.powder Previous Rx's Medication Instructions Recorded ipratropium 0.5 mg-albuterol 3 mg 3 ml inhalation Q6HP PRN Dyspnea 08/04/21 (2.5 mg base)/3 mL nebulization 30 days #120 ea soln lorazepam 1 mg tablet 1 mg PO HSP PRN Anxiety 3 days #3 02/16/22 tabs Allergies Allergy/AdvReac Type Severity Reaction Status Date / Time No Known Allergies Allergy Verified 08/11/21 11:15 [facility] Disclaimer: The information contained in this section may have been updated after the patient was seen, as this information can be updated by other users. Medical History (Updated 03/05/22 @ 04:50 by Miguel Nettles MD) Amputation finger COPD (chronic obstructive pulmonary disease) Family History (Updated 02/15/22 @ 05:18 by Michelle Boles RN) No significant family history Family history of cancer Father Social History (Updated 02/15/22 @ 05:17 by Michelle Boles RN) Smoking Status: Current every day smoker tobacco type: cigarettes packs per day: 1 smoking status start date: 48 years ago years smoked: 48 alcohol intake: former substance use type: marijuana current occupational status: disabled Travel in the last 8 weeks: Inside the [employer] housing: house caffeine: Yes ROS Obtained: Yes All systems reviewed & no additional complaints except as documented Physical Exam General General appearance: alert and anxious Head Head exam: normocephalic Eye Eye exam: Present PERRL and EOMI ENT ENT exam: Present mucous membranes dry Neck Neck exam: Present trachea midline Respiratory Respiratory exam: Present other (dec bs bilat ); Absent respiratory distress Cardiovascular Cardiovascular exam: Present tachycardia Abdominal Exam Abdominal exam: Present soft Extremities Exam Extremities exam: Absent calf tenderness Neurological Exam Neurological exam: Present alert, oriented X3, CN II-XII intact and motor sensory deficit Skin Skin exam: Absent rash Medical [facility]
[2022-03-05 04:30] LABS: Erythrocyte Sedimentation Rate 85 mm/hr (0-20)
--- NOTE | 2022-03-05 04:30 | PC.NURSE ---
Dr. Nettles at BS speaking with pt
[2022-03-05 04:39] LABS: Lymphocytes % 10 % (10-50); Macrocytosis 2+; Monocytes % 2 % (2-9); Neutrophils % 80 % (42-76); Platelet Estimate Slight Increase; Rouleaux 2+; Total Cells Counted 100
[2022-03-05 04:52] LABS: Adenovirus,PCR Not Detected (NotDetected); Bordetella Pertussis Not Detected (NotDetected); Chlamydophila Pneumoniae, PCR Not Detected (NotDetected); Coronavirus 19, PCR Not Detected (NotDetected); Coronavirus 229E Not Detected (NotDetected); Coronavirus NL63 Not Detected (NotDetected); Coronavirus OC43 Not Detected (NotDetected); Coronovirus HKU1,PCR Not Detected (NotDetected); Human Metapneumovirus Not Detected (NotDetected); Influenza A, PCR Not Detected (NotDetected); Influenza AH1, 2009 Not Detected (NotDetected); Influenza AH1, PCR Not Detected (NotDetected); Influenza AH3,PCR Not Detected (NotDetected); Influenza B, PCR Not Detected (NotDetected); Mycoplasma Pneumoniae, PCR Not Detected (NotDetected); Parainfluenza 1, PCR Not Detected (NotDetected); Parainfluenza 2, PCR Not Detected (NotDetected); Parainfluenza 3, PCR Not Detected (NotDetected); Parainfluenza 4, PCR Not Detected (NotDetected); Respiratory Syncytial Virus Not Detected (NotDetected); Rhinovirus/Enterovirus Not Detected (NotDetected)
--- NOTE | 2022-03-05 04:52 | PC.NURSE ---
Patient admitted observation to room 215 with dx of PNA, resp distress to service of .
--- NOTE | 2022-03-05 05:08 | EXP.HP ---
History of Present Illness *Admission Date: 03/05/22 *Reason for visit:: shortness of breath *History of present illness: This is a 61-year-old male with past medical history of COPD, recent hospitalization for same who presents emergency department today with 3 days of increasing shortness of breath. he reports being discharged in the hospital proximally 2 weeks ago and was doing fairly decent but has had worsening shortness of breath over the last several days. He reports that he has been recently waking up in the Middle of the night with severe shortness of breath has not been sleeping well and now is running a fever. he does endorse productive sputum brown in nature. He also reports continued tobacco usage but has decreased usage from 2 packs a day to 10 cigarettes a day. He denies any chest pain, vomiting or any sick contacts. Emergency department work-up significant for likely pneumonia as noted on chest x-ray. He presented with a fever of 102.5, tachycardic with oxygen saturations in the high 80s. inflammatory markers are elevated as well as procalcitonin. Due to the above-mentioned complaints he will be admitted to the hospital service for further evaluation management. [facility] Disclaimer: The information contained in this section may have been updated after the patient was seen, as this information can be updated by other users. Medical History Amputation finger COPD (chronic obstructive pulmonary disease) Family History (Updated 02/15/22 @ 05:18 by Michelle Boles RN) Father Family history of cancer Other No significant family history Social History (Updated 03/05/22 @ 06:04 by Michelle Boles RN) Smoking Status: Current every day smoker tobacco type: cigarettes packs per day: 1 smoking status start date: 48 years ago years smoked: 48 alcohol intake: former substance use type: marijuana current occupational status: disabled Travel in the last 8 weeks: Inside the [place] housing: house caffeine: Yes Review of Systems Constitutional Constitutional: Reports difficulty sleeping, Reports fatigue, Reports fever(s) and Reports lethargy Eyes Eyes: Reports system reviewed and no additional complaints, except as documented ENT Ears, Nose, Mouth, and Throat: Reports system reviewed and no additional complaints, except as documented *Cardiovascular Cardiovascular: Reports dyspnea and Reports rapid heart rate *Respiratory Respiratory: Reports change in phlegm color, Reports dyspnea, Reports excessive phlegm production and Reports pain with cough *Gastrointestinal Gastrointestinal: Reports system reviewed and no additional complaints, except as documented *Genitourinary Genitourinary: Reports system reviewed and no additional complaints, except as documented *Musculoskeletal Musculoskeletal: Reports system reviewed and no additional complaints, except as documented *Neurologic Neurologic: Reports system reviewed and no additional complaints, except as documented Endocrine Endocrine: Reports fatigue Meds Home Medications and Allergies Home Medications Medication Instructions Recorded Confirmed Type aspirin 325 mg tablet 325 mg PO DAILY heart health 02/22/17 03/05/22 History albuterol sulfate 90 mcg/actuation 1 puff inhalation Q4HP PRN 08/03/21 03/05/22 History aerosol inhaler Shortness Of Breath ipratropium 0.5 mg-albuterol 3 mg 3 ml inhalation Q6HP PRN Dyspnea 08/04/21 03/05/22 Rx (2.5 mg base)/3 mL nebulization 30 days #120 ea soln clonazepam 0.5 mg tablet 0.5 mg PO DAILY Anxiety 03/05/22 03/05/22 History New Prescriptions to Start Prescriptions: Allergies Allergy/AdvReac Type Severity Reaction Status Date / Time No Known Allergies Allergy Verified 08/11/21 11:15 Exam Data for Last 24 hours Vital signs and Labs for Last 24 Hours: Temp Pulse Resp BP Pulse Ox 102.5 F H 122 H 26 H 130
[2022-03-05 05:09] LABS: Chol/HDL Ratio 2.6 (1-3.5); Cholesterol 103 mg/dl (140-200); HDL Cholesterol 40 mg/dl (40-60); Magnesium 1.6 mg/dl (1.6-2.3); Triglycerides 89 mg/dl (30-150); VLDL Cholesterol 18 mg/dL (0-40)
[2022-03-05 05:30] LABS: Direct LDL Cholesterol < 30.00 mg/dL (100-129)
--- NOTE | 2022-03-05 05:50 | PC.NURSE ---
Pt arrived to floor via stretcher @ 2048.
[2022-03-05 07:31] LABS: Troponin I 0.02 ng/ml (0.00-0.034)
--- NOTE | 2022-03-05 10:07 | EXP.PN ---
Subjective *Date: 03/05/22 *Time: 10:07 Interval history: Date of service March 05, 2022 The patient reports ongoing dyspnea with some improvement from ED presentation. He identifies that he has severe COPD and reports previous evaluation by local learning support teacher. He has declined previous PFTs as recommended by pulmonology. He continues with ongoing tobacco use. Madelin DAVENPORT reports that he remains afebrile with improved respiratory rates, ongoing tachycardia and stable blood pressures. He is requiring air Vo 30 L with FiO2 50%. His usual home oxygen is 2 to 3 L via nasal cannula. His echocardiogram from July 2021 identified a EF 55% with diastolic dysfunction. A recent hospital admission (02/15) identified Pseudomonas in sputum. His admission chest x-ray identifies right upper lobe pneumonia. His blood cultures are pending. A goals of care conversation occurred with the patient today and he expresses a desire NOT to be intubated. His CODE STATUS has been updated. Exam Data for Last 24 hours Vital signs and Labs for Last 24 Hours: Temp Pulse Resp BP Pulse Ox FiO2 98.4 F 112 H 19 139/74 99 50 03/05/22 07:22 03/05/22 07:22 03/05/22 07:22 03/05/22 07:22 03/05/22 07:22 03/05/22 06:40 Laboratory Results - last 24 hr 03/05/22 03:29: Specimen Source R brachial, O2 % 4lpm, ABG pH 7.52 H, ABG pCO2 36.0, ABG pO2 43.8 L, ABG HCO3 28.7 H, ABG Total CO2 29.8 H, ABG O2 Saturation 86 L*, ABG Base Excess 5.8 H 03/05/22 03:35: WBC 10.4, RBC 3.71 L, Hgb 12.2 L, Hct 37.5 L, MCV 101.0 H, MCH 32.8 H, MCHC 32.5, RDW 13.9, Plt Count 516 H, MPV 8.4, Neut % (Auto) 86.3 H, Lymph % (Auto) 7.7 L, [place] % (Auto) 5.6, Eos % (Auto) 0.2, Baso % (Auto) 0.2, Neut # (Auto) 9.0 H, Lymph # (Auto) 0.8, [place] # (Auto) 0.6, Eos # (Auto) 0.0, Baso # (Auto) 0.0, Total Counted 100, Neutrophils % (Manual) 80 H, Band Neutrophils % 8.0, Lymphocytes % (Manual) 10, Monocytes % (Manual) 2, Platelet Estimate Slight increase, RBC Morphology Not Reportable, Macrocytosis 2+, Rouleaux 2+, ESR 85 H 03/05/22 03:35: Sodium 142, Potassium 3.3 L, Chloride 100, Carbon Dioxide 34 H, Anion Gap 11.3, BUN 28 H, Creatinine 0.60 L, Estimated Creat Clear 102, Estimated GFR 137, Est GFR ( Amer) 166, Glucose 140 H, Calcium 9.2, Total Bilirubin 0.7, AST 25, ALT 21, Alkaline Phosphatase 77, Troponin I < 0.01, C-Reactive Protein 367.8 H, NT-Pro-B Natriuret Pep 115, Total Protein 7.3, Albumin 3.7, Globulin 3.6 H, Albumin/Globulin Ratio 1.0 L, Procalcitonin 32.0 H 03/05/22 03:35: Lactate 1.6 03/05/22 03:35: Magnesium 1.6, Triglycerides 89, Cholesterol 103 L, LDL Cholesterol Direct < 30.00 L, VLDL Cholesterol 18, HDL Cholesterol 40, Cholesterol/HDL Ratio 2.6 03/05/22 04:03: SARS-CoV-2 (PCR) Not detected, Influenza A Untype (PCR) Not detected, Influenza Type B (PCR) Not detected 03/05/22 04:03: Chlamy pneumoniae PCR Not detected, Adenovirus (PCR) Not detected, B. pertussis DNA (PCR) Not detected, Coronavirus OC43 (PCR) Not detected, Coronavirus HKU1 (PCR) Not detected, Coronavirus 229E (PCR) Not detected, SARS-CoV-2 (PCR) Not detected, Coronavirus NL63 (PCR) Not detected, Human Metapneumovir PCR Not detected, Influenza A (H1) PCR Not detected, Influ A (H1N1/09) PCR Not detected, Influenza A (H3) PCR Not detected, Influenza Type A (PCR) Not detected, Influenza Type B (PCR) Not detected, M. pneumoniae (PCR) Not detected, Parainfluenza 1 (PCR) Not detected, Parainfluenza 2 (PCR) Not detected, Parainfluenza 3 (PCR) Not detected, Parainfluenza 4 (PCR) Not detected, RSV (PCR) Not detected, Entero/Rhino (PCR) Not detected 03/05/22 06:52: Troponin I 0.02 I & O for Last 24 hours: Intake & Output 03/02/22 03/03/22 03/04/22 03/05/22 23:59 23:59 23:59 23:59 Weight 55.338 kg Constitutional Constitutional: no acute distress, mild distress, chronically ill appearing and cooperative *Routine HEENT Exam Head: Present normocephalic Eye: Present EOMI and PERRL ENT: Present mucous membranes moist *Routine Neck
[2022-03-05 10:21] LABS: Troponin I 0.02 ng/ml (0.00-0.034)
[2022-03-05 11:12] LABS: ABG Base Excess 4.8 mmol/L (-2.4-2.3); ABG HCO3 29.9 mmhg (22.0-26.0); ABG Oxygen Saturation 97 % (90-100); ABG PH 7.38 mmol/L (7.35-7.45); ABG PO2 92.3 mmhg (80-100); ABG TCO2 31.5 mmhg (23-27)
[2022-03-05 11:14] LABS: Allen's Test Acceptable
[2022-03-05 11:15] LABS: Source Left Radial
[2022-03-05 11:17] LABS: ABG PCO2 51.2 mmhg (35.0-45.0)
--- NOTE | 2022-03-05 11:41 | PC.NURSE ---
Addendum entered by Michelle Garces RN 03/05/22 17:54: no acute changes from previous shift other stephenson turning vapotherm down, pt still tolerating well. cb within reach. Original Note: per kailee, turn vapotherm down to 15l, RT notified
[2022-03-06] VITALS (13 sets, daily range): BP systolic 113–138; BP diastolic 57–81; PULSE 83–120; RESP 16–20; TEMP 36.6–36.9; O2SAT 90–98; BMI 18.1
[2022-03-06 05:59] LABS: Eosinophils % 0.1 % (0.1-12.0); Hematocrit 34.3 % (42.0-52.0); Hemoglobin 10.9 g/dL (14.1-18.0); Lymphocytes # 0.5 K/mm3 (0.7-4.5); Lymphocytes % 5.3 % (10-50); Mean Corpuscular HGB Conc 31.9 g/dL (31.8-35.4); Mean Corpuscular Hemoglobin 32.1 pg (27.0-31.2); Mean Corpuscular Volume 100.9 fl (80-94); Monocytes # 0.5 K/mm3 (0.1-1.0); Monocytes % 5.2 % (1.7-9.3); Neutrophils % 89.4 % (37.0-80.0); Platelet Count 448 K/mm3 (142-424); Red Blood Count 3.41 M/mm3 (4.60-6.20)
[2022-03-06 06:00] LABS: MANUAL DIFFERENTIAL MANUAL DIFFERENTIAL (MANUAL DIFF)
[2022-03-06 06:08] LABS: Hypochromasia 1+; Lymphocytes % 13 % (10-50); Macrocytosis 2+; Neutrophils % 82 % (42-76); Platelet Estimate Slight Increase; Total Cells Counted 100
[2022-03-06 06:15] LABS: Anion Gap 8.9 mEq/L (5-15); Blood Urea Nitrogen 34 mg/dl (9-20); Calcium 8.7 mg/dl (8.4-10.2); Carbon Dioxide 33 mmol/L (22.0-30.0); Chloride 104 mmol/L (98-107); Creatinine Clearance Estimated 114 mL/min (50-200); Estimated Glomerular Filt Rate 170 ml/min (>60); GFR (African American) 205 ML/MIN (>60); Glucose 171 mg/dl (74-100); Potassium 3.9 mmoL/L (3.5-5.1); Sodium 142 mmol/L (136-145)
[2022-03-06 06:30] LABS: Procalcitonin 20.3 ng/mL (0.0-2.0)
--- NOTE | 2022-03-06 06:42 | PC.NURSE ---
Pt continues on vapotherm 20 L , 50% t/o night. Pt O2 will rise to mid 90s while pt is up on side of the bed but will go down to 88% while pt is laying down in bed. Pt states he feels SOA at these times. Exp rhonchi t/o lungs. Pt has not voiced any c/o to staff. Call light within reach.
[2022-03-06 07:03] LABS: Vitamin B12 809 pg/mL (239-931)
--- NOTE | 2022-03-06 08:30 | EXP.PN ---
Subjective *Date: 03/06/22 *Time: 08:45 Interval history: Date of service March 06, 2022 The patient reports improved dyspnea. Nursing staff report that he still requiring 20 L Vapotherm to maintain appropriate oxygen saturations. He remains afebrile with some elevated heart rates yesterday. His blood pressures are stable. His morning labs identify a normal white blood cell count with stable hemoglobin and improved platelet count. His electrolytes are normal and his creatinine 0.5. Exam Data for Last 24 hours Vital signs and Labs for Last 24 Hours: Temp Pulse Resp BP Pulse Ox FiO2 98.1 F 110 H 20 128/76 94 L 50 03/06/22 08:00 03/06/22 08:00 03/06/22 08:00 03/06/22 08:00 03/06/22 08:00 03/06/22 06:35 Laboratory Results - last 24 hr 03/05/22 05:07: Specimen Source Left radial, O2 % Vapo 30l / 50%, ABG pH 7.38, ABG pCO2 51.2 H, ABG pO2 92.3, ABG HCO3 29.9 H, ABG Total CO2 31.5 H, ABG O2 Saturation 97, ABG Base Excess 4.8 H, Robi Test Acceptable 03/05/22 09:45: Troponin I 0.02 03/06/22 05:46: Sodium 142, Potassium 3.9, Chloride 104, Carbon Dioxide 33 H, Anion Gap 8.9, BUN 34 H, Creatinine 0.50 L, Estimated Creat Clear 114, Estimated GFR 170, Est GFR ( Amer) 205 D, Glucose 171 H, Calcium 8.7, Magnesium 2.0 D, Vitamin B12 809, Procalcitonin 20.3 H 03/06/22 05:46: WBC 10.0, RBC 3.41 L, Hgb 10.9 L, Hct 34.3 L, MCV 100.9 H, MCH 32.1 H, MCHC 31.9, RDW 14.0, Plt Count 448 H, MPV 8.0, Neut % (Auto) 89.4 H, Lymph % (Auto) 5.3 L, [place] % (Auto) 5.2, Eos % (Auto) 0.1, Baso % (Auto) 0.0 L, Neut # (Auto) 9.0 H, Lymph # (Auto) 0.5 L, [place] # (Auto) 0.5, Eos # (Auto) 0.0, Baso # (Auto) 0.0, Total Counted 100, Neutrophils % (Manual) 82 H, Band Neutrophils % 5.0, Lymphocytes % (Manual) 13, Platelet Estimate Slight increase, Hypochromasia 1+, Macrocytosis 2+ I & O for Last 24 hours: Intake & Output 03/03/22 03/04/22 03/05/22 03/06/22 23:59 23:59 23:59 23:59 Intake Total 480 / 480 795 / 795 Output Total 575 / 575 300 / 300 Balance -95 / -95 495 / 495 Weight 55.338 kg 51.12 kg Microbiology Reports for the Last 24 Hours: Microbiology 03/05/22 11:41 Sputum - Expectorated Sputum Gram Stain - Final 03/05/22 11:41 Sputum - Expectorated Sputum Sputum Culture - Preliminary Gram Negative Rods Constitutional Constitutional: no acute distress, mild distress, chronically ill appearing and cooperative *Routine HEENT Exam Head: Present normocephalic Eye: Present EOMI and PERRL ENT: Present mucous membranes moist *Routine Neck Exam Neck: Present supple and trachea midline; Absent lymphadenopathy *Routine Respiratory Exam Respiratory: Present respiratory distress, rhonchi, wheezes, distant breath sounds, diminished air movement and symmetric chest movement *Routine Cardiovascular Exam Cardiovascular: Present tachycardia; Absent murmur or JVD *Routine Abdominal Exam Abdominal: Present soft and normoactive bowel sounds; Absent tenderness *Routine Extremities Exam Extremities: Present full ROM, pulses intact and normal capillary refill; Absent cyanosis, clubbing or edema Comments: Tobacco stained fingers *Routine Skin Exam Skin: Present warm; Absent rash *Routine Neurological Exam Neurological: Present alert, oriented X3, moving all extremities, vision grossly intact and hearing grossly intact; Absent sensory deficit or motor deficit Routine Psychiatric Exam Psychiatric: Present normal affect, normal thought process, cooperative, good insight and good judgment Assessment and Plan *Assessment and plan (1) Sepsis: Status: Acute Category: Medical Code(s): A41.9 - Sepsis, unspecified organism (2) Acute and chronic respiratory failure with hypoxia: Status: Acute Category: Medical Code(s): J96.21 - Acute and chronic respiratory failure with hypoxia (3) Pneumonia: Status: Acute Category: Medical Code(s): J18.9 - Pneumonia, u
--- NOTE | 2022-03-06 09:27 | DIET.NUTRFU ---
RD consult for high protein/high calorie diet plan, Spoke to patient last admit on 02/23 also. Since then he has tired to add more food into his day. He receives 5 meals/week from meals/wheels. He has a caregiver at the house that goes grocery shopping for other items and helps with meal prep. He has no teeth and orders softer foods. Likes tuna, eggs, peanut butter and chicken salad. he drinks milk at all meals at home. Dislikes cottage cheese and yogurt. The ensure is too expensive for him at home, reviewed other supplement choices that maybe cheaper for 1/day supplementation. Offered a coupon and he declined. He will continue to receive the ensure during stay. Per provider he is also reviewing goals of care changed to DNI at this time. Provider confirmed he triggers for severe protein malnutrition
--- NOTE | 2022-03-06 09:28 | PC.NURSE ---
RESP CARE NOTE: Dr Bullard requests that patient be placed on Trilegy machine, for hypercapnia. After discussing other options with Dr Bullard, he requests BIPAP with settings of 10/4 cmH2O. Machine taken in to patient and explanation of orders discussed with patient. Patient refuses to allow BIPAP to be placed on himself. After reviewing ABG results, which reveal a chronically compensated pH of 7.38 on vapotherm, patient placed back on vapotherm of 20L/50% FIO2.
--- NOTE | 2022-03-06 16:40 | PC.NURSE ---
pt has remained on vapotherm at 20L/50%, no complaints of SOA or pain, L lower base has inspiratory wheezes on auscultation
[2022-03-07] VITALS (13 sets, daily range): BP systolic 131–162; BP diastolic 73–83; PULSE 90–120; RESP 19–24; TEMP 36.6–37.1; O2SAT 92–97; BMI 18.0
--- NOTE | 2022-03-07 02:12 | PC.NURSE ---
Pt has been A/O x 4, has been up to restroom and used urinal this shift. Pt is short of air on exertion. Lungs had wheezes in right upper lobe. Reports he is feeling better today than he was. Pt has been educated on medications and Plan of care. IV is patent. Pt has been encouraged to deep breath. Pt verbalized understanding. Encouraged to report any needs to staff.
[2022-03-07 06:44] LABS: Basophils % 0.2 % (0.1-2.0); Hematocrit 33.3 % (42.0-52.0); Hemoglobin 10.7 g/dL (14.1-18.0); Lymphocytes # 0.4 K/mm3 (0.7-4.5); Lymphocytes % 2.9 % (10-50); Mean Corpuscular HGB Conc 32.3 g/dL (31.8-35.4); Mean Corpuscular Hemoglobin 32.4 pg (27.0-31.2); Mean Corpuscular Volume 100.5 fl (80-94); Mean Platelet Volume 8.6 fl (7.4-10.4); Monocytes # 0.6 K/mm3 (0.1-1.0); Monocytes % 4.9 % (1.7-9.3); Neutrophils # 11.5 K/mm3 (1.8-7.8); Neutrophils % 92.1 % (37.0-80.0); Platelet Count 489 K/mm3 (142-424); Red Blood Count 3.31 M/mm3 (4.60-6.20); Red Cell Distribution Width 14.1 % (11.5-17.5); White Blood Count 12.5 K/mm3 (4.8-10.8)
[2022-03-07 06:54] LABS: Anion Gap 9.9 mEq/L (5-15); Blood Urea Nitrogen 35 mg/dl (9-20); Calcium 8.9 mg/dl (8.4-10.2); Carbon Dioxide 34 mmol/L (22.0-30.0); Chloride 103 mmol/L (98-107); Creatinine Clearance Estimated 94 mL/min (50-200); Estimated Glomerular Filt Rate 137 ml/min (>60); GFR (African American) 166 ML/MIN (>60); Glucose 168 mg/dl (74-100); Potassium 3.9 mmoL/L (3.5-5.1); Sodium 143 mmol/L (136-145)
[2022-03-07 06:56] LABS: MANUAL DIFFERENTIAL MANUAL DIFFERENTIAL (MANUAL DIFF)
[2022-03-07 07:47] LABS: Lymphocytes % 11 % (10-50); Monocytes % 4 % (2-9); Neutrophils % 85 % (42-76); Platelet Estimate Normal; RBC Morphology Normal; Total Cells Counted 100
--- NOTE | 2022-03-07 09:27 | PC.NURSE ---
Pt refused 0900 dose of clonazepam, he states it makes him too sleepy and only wants the 2100 dose;
--- NOTE | 2022-03-07 10:08 | DIET.NUTRFU ---
Addendum entered by Anabel Covarrubias RD, LD 03/07/22 12:49: BM was reported to provider this morning Original Note: Chart review, no BM since admit. provider aware and BM regimen was added. Continues on low sodium diet with high calorie/high protein foods encouraged and educated on. Dinah intake has been fair at 50-75% of most meals. He is also receiving ensure with meals, he drinks but only during stay at hospital. Labs reviewed, will continue to monitor po intake.
--- NOTE | 2022-03-07 10:33 | EXP.ACUTE.PN ---
Subjective *Date: 03/07/22 *Time: 10:38 Interval history: Patient in no acute events overnight. Is currently stable on Vapotherm at 20 L and 50% oxygen. Sputum improving in color. Had a bowel movement this morning. Denies any chest pain, nausea, vomiting, confusion. Mother at bedside. Patient is afebrile and hemodynamically stable. Updated of plan. Tolerating good p.o. intake with breakfast Medical Exam Vital signs and Labs for Last 24 Hours: Vital Signs Temp Pulse Pulse Pulse Resp BP Pulse Ox 03/07/22 08:00 97.9 F 115 H 24 131/73 96 03/07/22 08:00 110 H 03/07/22 06:19 103 H 03/07/22 06:19 106 H 03/07/22 06:19 95 03/07/22 04:00 90 03/07/22 03:42 98.2 F 100 H 20 154/81 H 97 03/07/22 00:00 100 H 03/06/22 23:54 97.9 F 105 H 20 113/57 L 98 03/06/22 20:00 120 H 03/06/22 23:09 106 H 03/06/22 23:09 106 H 03/06/22 19:26 98.1 F 109 H 20 134/79 97 03/06/22 18:38 110 H 03/06/22 18:38 111 H 03/06/22 18:38 91 L 03/06/22 16:00 110 H 03/06/22 16:00 98.2 F 114 H 20 115/70 91 L 03/06/22 12:00 110 H 03/06/22 12:45 110 H 03/06/22 12:45 113 H 03/06/22 12:45 93 L 03/06/22 12:00 98.4 F 110 H 20 138/81 92 L FiO2 03/07/22 08:00 03/07/22 08:00 03/07/22 06:19 03/07/22 06:19 03/07/22 06:19 50 03/07/22 04:00 03/07/22 03:42 03/07/22 00:00 03/06/22 23:54 03/06/22 20:00 03/06/22 23:09 03/06/22 23:09 03/06/22 19:26 03/06/22 18:38 03/06/22 18:38 03/06/22 18:38 50 03/06/22 16:00 03/06/22 16:00 03/06/22 12:00 03/06/22 12:45 03/06/22 12:45 03/06/22 12:45 50 03/06/22 12:00 Intake and Output 03/06/22 03/07/22 03/07/22 23:59 07:59 15:59 Intake Total 600 / 2115 240 / 240 Output Total 500 / 800 200 / 300 100 / 300 Balance 100 / 1315 -200 / -60 140 / -60 Intake: Intake, Oral Amount 600 / 1920 240 / 240 Output: Output, Urine Amount 500 / 800 200 / 300 100 / 300 Other: Number of Voids 1 Number of Unmeasured Voids 0 Number of Bowel Movements 1 Weight 50.972 kg Patient Weight 03/07/22 23:59 Weight 50.972 kg Laboratory Results - last 24 hr 03/07/22 06:13: WBC 12.5 H, RBC 3.31 L, Hgb 10.7 L, Hct 33.3 L, MCV 100.5 H, MCH 32.4 H, MCHC 32.3, RDW 14.1, Plt Count 489 H, MPV 8.6, Neut % (Auto) 92.1 H, Lymph % (Auto) 2.9 L, [place] % (Auto) 4.9, Eos % (Auto) 0.0 L, Baso % (Auto) 0.2, Neut # (Auto) 11.5 H, Lymph # (Auto) 0.4 L, [place] # (Auto) 0.6, Eos # (Auto) 0.0, Baso # (Auto) 0.0, Total Counted 100, Neutrophils % (Manual) 85 H, Lymphocytes % (Manual) 11, Monocytes % (Manual) 4, Platelet Estimate Normal, RBC Morphology Normal 03/07/22 06:13: Sodium 143, Potassium 3.9, Chloride 103, Carbon Dioxide 34 H, Anion Gap 9.9, BUN 35 H, Creatinine 0.60 L, Estimated Creat Clear 94, Estimated GFR 137, Est GFR ( Amer) 166, Glucose 168 H, Calcium 8.9 I & O for Labs for Last 24 Hours: Intake & Output 03/04/22 03/05/22 03/06/22 03/07/22 23:59 23:59 23:59 23:59 Intake Total 480 / 480 2115 / 2115 240 / 240 Output Total 575 / 575 800 / 800 300 / 300 Balance -95 / -95 1315 / 1315 -60 / -60 Weight 55.338 kg 51.12 kg 50.972 kg Microbiology Reports for the Last 24 Hours: Microbiology 03/05/22 11:41 Sputum - Expectorated Sputum Gram Stain - Final 03/05/22 11:41 Sputum - Expectorated Sputum Sputum Culture - Final Pseudomonas aeruginosa 03/05/22 03:35 Blood Blood Culture - Preliminary NO GROWTH AFTER 48 HOURS 03/05/22 03:35 Blood Blood Culture - Preliminary NO GROWTH AFTER 48 HOURS Constitutional: Present mild distress, cachectic, chronically ill appearing and cooperative Head: Present atraumatic and normocephalic ENT: Present normal exam Neck: Present normal inspection Respiratory: Pres
--- NOTE | 2022-03-07 10:37 | EXP.DC.SUM ---
General Admission date:: 03/05/22 Discharge date: 03/08/22 HPI HPI HPI: This is a 61-year-old male with past medical history of COPD, recent hospitalization for same who presents emergency department today with 3 days of increasing shortness of breath. he reports being discharged in the hospital proximally 2 weeks ago and was doing fairly decent but has had worsening shortness of breath over the last several days. He reports that he has been recently waking up in the Middle of the night with severe shortness of breath has not been sleeping well and now is running a fever. he does endorse productive sputum brown in nature. He also reports continued tobacco usage but has decreased usage from 2 packs a day to 10 cigarettes a day. He denies any chest pain, vomiting or any sick contacts. Emergency department work-up significant for likely pneumonia as noted on chest x-ray. He presented with a fever of 102.5, tachycardic with oxygen saturations in the high 80s. inflammatory markers are elevated as well as procalcitonin. Due to the above-mentioned complaints he will be admitted to the hospital service for further evaluation management. Hospital Course Hospital Course Hospital Course: This is a 61-year-old male with ongoing tobacco use and established severe COPD identified on imaging with no PFTs available for review.? Admitted for pneumonia, cultures growing Pseudomonas again.? Showing clinical improvement, weaned to 6 L nasal cannula. Patient's baseline is 4 to 5 L at home. Tolerating oral intake. Transition to oral antibiotics to complete course. Stable for discharge home. Problems addressed as follows: Sepsis, POA Acute on chronic hypoxemic respiratory failure Right upper lobe pneumonia Presented with tachycardia, tachypnea, fever, leukocytosis, elevated procalcitonin and findings on chest x-ray of right upper lobe pneumonia. Started on IV fluids. Blood cultures and sputum cultures obtained. Blood cultures remain negative however sputum culture returned with Pseudomonas. Will complete 14 days total of antibiotics. Transition to Levaquin for oral therapy. Showing improvement clinically. Able to wean to 6 L nasal cannula (baseline 4 to 5 L). Oxygen saturation remained between 88 and 94%. Continue inhaler therapy including Trelegy and DuoNebs. Patient received steroids during admission, is on long-term daily steroids from his PCP at 20 mg prednisone daily. Recommend resuming regimen on discharge. Patient medically stable for discharge home. Will need larger concentrator, new order for oxygen sent to [facility]. Severe protein calorie malnutrition Patient presents with cachexia and malnutrition secondary to his underlying lung disease. Dietary assisted with management during hospitalization. Continue with protein supplementation. Tobacco dependence: Tobacco cessation education, Nicotine replacement therapy during admission. Exam Data for Last 24 hours Vital signs and Labs for Last 24 Hours: Temp Pulse Resp BP Pulse Ox FiO2 97.9 F 115 H 24 131/73 96 50 03/07/22 08:00 03/07/22 08:00 03/07/22 08:00 03/07/22 08:00 03/07/22 08:00 03/07/22 06:19 Laboratory Results - last 24 hr 03/07/22 06:13: WBC 12.5 H, RBC 3.31 L, Hgb 10.7 L, Hct 33.3 L, MCV 100.5 H, MCH 32.4 H, MCHC 32.3, RDW 14.1, Plt Count 489 H, MPV 8.6, Neut % (Auto) 92.1 H, Lymph % (Auto) 2.9 L, [place] % (Auto) 4.9, Eos % (Auto) 0.0 L, Baso % (Auto) 0.2, Neut # (Auto) 11.5 H, Lymph # (Auto) 0.4 L, [place] # (Auto) 0.6, Eos # (Auto) 0.0, Baso # (Auto) 0.0, Total Counted 100, Neutrophils % (Manual) 85 H, Lymphocytes % (Manual) 11, Monocytes % (Manual) 4, Platelet Estimate Normal, RBC Morphology Normal 03/07/22 06:13: Sodium 143, Potassium 3.9, Chloride 103, Carbon Dioxide 34 H, Anion Gap 9.9, BUN 35 H, Creatinine 0.60 L, Estimated Creat Clear 94, Estimated GFR 137, Est GFR ( Amer) 166, Glucose 168 H, Calcium 8.9 I & O for Last 24 hours: Intake &
[2022-03-07 16:39] LABS: Prealbumin 11 mg/dL (10-36)
--- NOTE | 2022-03-07 17:32 | PC.NURSE ---
Pt is alert and oriented x4. He's been weaned from vapotherm to 6L NC. Oxygen sats have been 88% -95%, MD aware. Pt reports feeling better today than yesterday. He's used his urinal at the bedside. Appetite has been ok. He denies any complaints at this time. Bed is locked and in the lowest position, call light is within reach.
[2022-03-08] VITALS (7 sets, daily range): BP systolic 132–139; BP diastolic 80–81; PULSE 95–115; RESP 18–20; TEMP 36.7–36.9; O2SAT 86–94; BMI 18.0
--- NOTE | 2022-03-08 02:02 | PC.NURSE ---
Pt laying in bed resting at this time. Has been A/O x 4, resp even adn non labored, lungs diminished. Pt does have Shortness of air on exertion. Reports he is ready to go home, he misses his dog. Pt has been encouraged to deep breath. IV patent, bed locked in low position, side rails up x 2.
[2022-03-08 06:49] LABS: Basophils % 0.2 % (0.1-2.0); Eosinophils % 0.1 % (0.1-12.0); Hematocrit 32.2 % (42.0-52.0); Hemoglobin 10.6 g/dL (14.1-18.0); Lymphocytes # 0.5 K/mm3 (0.7-4.5); Lymphocytes % 3.6 % (10-50); Mean Corpuscular Hemoglobin 33.7 pg (27.0-31.2); Mean Corpuscular Volume 102.1 fl (80-94); Mean Platelet Volume 8.6 fl (7.4-10.4); Monocytes # 0.8 K/mm3 (0.1-1.0); Monocytes % 5.9 % (1.7-9.3); Neutrophils # 12.2 K/mm3 (1.8-7.8); Neutrophils % 90.2 % (37.0-80.0); Platelet Count 480 K/mm3 (142-424); Red Blood Count 3.16 M/mm3 (4.60-6.20); Red Cell Distribution Width 13.8 % (11.5-17.5); White Blood Count 13.5 K/mm3 (4.8-10.8)
[2022-03-08 07:00] LABS: Anion Gap 7.8 mEq/L (5-15); Blood Urea Nitrogen 28 mg/dl (9-20); Calcium 8.4 mg/dl (8.4-10.2); Carbon Dioxide 34 mmol/L (22.0-30.0); Chloride 104 mmol/L (98-107); Creatinine Clearance Estimated 113 mL/min (50-200); Estimated Glomerular Filt Rate 170 ml/min (>60); GFR (African American) 205 ML/MIN (>60); Glucose 145 mg/dl (74-100); Potassium 3.8 mmoL/L (3.5-5.1); Sodium 142 mmol/L (136-145)
[2022-03-08 07:08] LABS: MANUAL DIFFERENTIAL MANUAL DIFFERENTIAL (MANUAL DIFF)
[2022-03-08 08:09] LABS: Lymphocytes % 7 % (10-50); Monocytes % 3 % (2-9); Neutrophils % 90 % (42-76); Platelet Estimate Slight Increase; RBC Morphology Normal; Total Cells Counted 100
--- NOTE | 2022-03-08 10:23 | HMH.PHAINT1 ---
Pharmacy Intervention Comments: DISCHARGE MEDICATION COUNSELING PROVIDED. DISCUSSED INCREASE IN CLONAZEPAM FROM 0.5 MG DAILY TO 1 MG DAILY. START THE FOLLOWING NEW MEDICATIONS: -LEVOFLOXACIN (ANTIBIOTIC, DAILY, TAKE WITH FOOD TO MINIMIZE N/V/D) -TRELEGY (FOR COPD, ONE INHALATION DAILY, RINSE MOUTH AFTER USE, PATIENT STATES HE WAS GIVEN INHALER FROM HOSPITAL STAY TO TAKE HOME) -NICOTINE PATCH (FOR SMOKING CESSATION, REMOVE OLD PATCH BEFORE PLACING NEW ONE, ROTATE APPLICATION SITES DAILY, REMOVE PRIOR TO ANY IMAGING TO AVOID CODY, MAY CAUSE SKIN IRRITATION) PATIENT VERBALIZED NO QUESTIONS AT THIS TIME.
--- NOTE | 2022-03-08 11:09 | CARE MANAGER ---
Patient stable on 6L. Due to insurance doesn't qualify for home health, but is considering pulmonary outpatient rehab. ISSAC Sanders
--- NOTE | 2022-03-09 10:56 | CARE MANAGER ---
CM called and spoke with patient regarding post discharge status. 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 Patient was aware of f/u appt. No complaints or concerns voiced at time of call.
== END 2022-03-08 11:08 | DRG 871 ==
LOC: ER 04:50 → 2ND 07:07
PROVIDERS: Nurse Practitioner Acute Care; Admitting Provider Family Medicine; Emergency Provider Emergency Medicine; PCP Emergency Medicine; Visit Provider Internal Medicine Adolescent Medicine
DX: A41.9 Sepsis, unspecified organism (principal); E43 Unspecified severe protein-calorie malnutrition; J96.21 Acute and chronic respiratory failure with hypoxia; J15.1 Pneumonia due to Pseudomonas; J44.1 Chronic obstructive pulmonary disease with (acute) exacerbation; J44.0 Chronic obstructive pulmonary disease with (acute) lower respiratory infection; Z68.1 Body mass index [BMI] 19.9 or less, adult; F17.210 Nicotine dependence, cigarettes, uncomplicated; Z71.6 Tobacco abuse counseling
CPT/HCPCS: 36415; 71045; 80048; 80053; 80061; 82607; 82803; 83605; 83735; 83880; 84134; 84145; 84484; 85007; 85025; 85651; 86140; 87040; 87070; 87077; 87186; 87205; 87581; 87632; 87798; 93005; 94640; 94760; 99285; C9803; J2543; J3370; J3475; U0003; U0005